=== PATIENT | female | born 1945 | race Caucasian/White ===

== ENCOUNTER 2024-12-23 13:27 | Inpatient (IN) | payer OTHER, MEDICAID, SELFPAY ==
[2024-12-23] VITALS (10 sets, daily range): BP systolic 141–159; BP diastolic 67–127; PULSE 70–94; RESP 19–32; TEMP 36.8; O2SAT 93–98; BMI 40.9
--- NOTE | 2024-12-23 13:39 | XR_ITS ---
WS: [id number] XR chest 1V portable [id number] REASON FOR EXAM: SOB FINDINGS: No prior examination for comparison. Calcification of the aortic arch with mild tortuosity of the thoracic aorta. Heart cardiomegaly. Mild central pulmonary venous congestion. Bilateral calcified granulomatous disease. There is a slightly hyperdense mass (2.2 cm) in the right lower medial lung field which may represent a partially calcified granuloma. Old pleural pericardial reaction on the left. No findings of pulmonary edema. Linear opacities in both lower lungs atelectasis versus fibrotic scarring. XR/XR chest 1V portable [id number] IMPRESSION: Moderate cardiomegaly and central pulmonary venous congestion. Right lower lung mass as above. No definite acute abnormality.
--- NOTE | 2024-12-23 13:40 | ECG_ITS ---
[employer] 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
[2024-12-23 13:57] LABS: Basophils # 0.1 10^3/uL (0.0-0.1); Basophils % 0.8 %; Eosinophils # 0.1 10^3/uL (0.0-0.8); Eosinophils % 0.7 %; Hematocrit 32.4 % (36-47); Lymphocytes # 1.6 10^3/uL (0.8-4.8); Lymphocytes % 21.8 %; Mean Corpuscular HGB Conc 29.6 g/dL (30-55); Mean Corpuscular Hemoglobin 27.5 pg (27-33); Mean Corpuscular Volume 92.8 fl (85-98); Mean Platelet Volume 9.1 fL (7.4-10.4); Monocytes # 0.6 10^3/uL (0.2-0.9); Monocytes % 8.3 %; Neutrophils # 4.84 10^3/uL (1.8-7.7); Neutrophils % 68.1 %; Nucleated Red Blood Cells % 0 %; Platelet Count 296 10^3/cmm (157-399); Red Blood Count 3.49 10^6/uL (3.85-5.65); Red Cell Distribution Width 15.1 % (12.1-15.1); White Blood Count 7.11 10^3/uL (3.29-11.43)
[2024-12-23 14:15] LABS: Bilirubin Urine Negative (Negative); Blood Urine Negative (Negative); Glucose Urine UA Negative (Normal); Ketones Urine Negative (Negative); Leukocyte Esterase Urine Negative (Negative); Nitrate Urine Negative (Negative); Protein Urine Negative (Negative); Specific Gravity, Urine 1.007 (1.005-1.030); Urine Appearance Clear (CLEAR); Urine Color Yellow (Yellow); Urobilinogen Urine 0.2 mg/dL (Negative)
[2024-12-23 14:20] LABS: Add Urine Microscopic? YES; Bacteria Urine None Seen /hpf; Hyaline Casts Urine 0-4 /lpf; RBC Urine 0-2 /hpf (0-2); Squamous Epithelial Cell Urine 0-5 /hpf (0-5); WBC Urine 0-5 /hpf (0-5)
[2024-12-23 14:24] LABS: Troponin(5th) Baseline 33 ng/L (0-10)
[2024-12-23 14:29] LABS: Alanine Aminotransferase 11 U/L (0-33); Albumin Level 3.9 g/dL (3.5-5.2); Alkaline Phosphatase 80 U/L (35-105); Aspartate Amino Transferase 13 U/L (0-32); Blood Urea Nitrogen 16 mg/dL (8-23); Calcium 9.7 mg/dL (8.5-10.5); Carbon Dioxide 35 mmol/L (22-29); Chloride 97 mmol/L (98-107); Creatinine Clr Calc Pharmacy 57.4999; Globulin 2.5 g/dL (1.3-4.6); Glucose 102 mg/dL (65-115); NT Pro B Type Natriuretic Pept 192 pg/mL (0-450); Osmolality Calculated 295 mOsm/kg (285-295); Sodium 142 mmol/L (136-145); Total Bilirubin 0.2 mg/dL (0.15-1.2); Total Protein 6.4 g/dL (6.6-8.7)
[2024-12-23 14:33] LABS: Anion Gap 14.7 (5-19); Potassium 4.7 mmol/L (3.5-5.1)
--- NOTE | 2024-12-23 15:55 | ECG_ITS ---
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
[2024-12-23 16:09] LABS: Troponin 5 2HR 30.76 ng/L (0-10)
[2024-12-23] MEDS: acetaminophen 500 mg Tablet 1000 MG PO ×2 (16:10→21:34)
[2024-12-23 16:13] LABS: Troponin 5 2HR Delta -2.24 ABS# (0-10)
[2024-12-23] MEDS: FUROsemide 10 mg/mL SDV 10mL 80 MG IVP (16:17)
--- NOTE | 2024-12-23 16:53 | ED_ITS ---
HPI - SOB/Dyspnea 2 General: Chief Complaint: Shortness of Breath/Dyspnea Stated Complaint: sob - thigh edema Time Seen by Provider: 12/23/24 13:30 History of Present Illness: HPI Narrative: This patient is a 79-year-old white female who presents to the ER with shortness of breath. Patient states she has a history of COPD and CHF. She states she has been more short of breath than usual over the past 3 to 4 days. She is requiring 6 L of oxygen and she is normally on 3 L. She was brought in by EMS. They did administer a DuoNeb treatment without much relief. Patient denies having any chest pain. Related Data Allergies Allergy/AdvReac Type Severity Reaction Status Date / Time propoxyphene (From Darvon) Allergy Unknown Verified 12/23/24 13:56 Review of Systems 2 General: Reports: 10 or more systems reviewed and unremarkable except in HPI and below Resp: Reports: dyspnea Physical Exam 2 Const: COMMON NORMALS: no acute distress, patient oriented x3 and no limitations GENERAL APPEARANCE: cooperative and comfortable HENMT: COMMON NORMALS: normocephalic, atraumatic, Normal nasal mucous membranes and turbinates present, moist oral mucous membranes and oropharynx normal HEAD & SCALP: normal to inspection, normocephalic and atraumatic F SLADE & SINUS: normal facial exam NOSE: Normal nasal mucous membranes and turbinates present Eye: COMMON NORMALS: Equal, round and reactive pupils present, EOMs intact bilaterally and conjunctivae normal GENERAL EYE: appearance normal, both eyes and all related structures CONJUNCTIVA: Yes conjunctivae normal PUPIL: Yes Equal, round and reactive pupils present Neck/C-Spine: COMMON NORMALS: supple and no JVD Chest: COMMONS NORMALS: normal inspection of the chest Resp: COMMON NORMALS: normal respiratory effort EFFORT & INSPECTION: Yes able to speak in complete sentences AUSCULTATION: rales Cardio: COMMON NORMALS: no JVD, regular rate, regular rhythm, No gallops present (Cardio), No murmurs present (Cardio) and No rub (Cardio) RATE: r egular rate RHYTHM: regular rhythm GI: COMMON NORMALS: Normal to inspection, nondistended, normoactive bowel sounds present, Soft to palpation and non-tender AUSCULTATION: Yes normoactive bowel sounds PALPATION: Yes Soft to palpation : COMMON NORMALS: Yes no CVA tenderness BLADDER/KIDNEY EXAM: Yes no CVA tenderness Back/Pelvis: COMMON NORMALS: no CVA tenderness and thoracic and lumbar spine normal to inspection Extremity: NARRATIVE EXTREMITY EXAM: 3+ pitting edema bilateral lower extremi ties. Neuro: COMMON NORMALS: patient oriented x3 and CN's II-XII intact bilaterally Psych: COMMON NORMALS: mental status grossly normal, Normal thought process present and cooperative THOUGHT PROCESS: Normal thought process present Skin: COMMON NORMALS: no rashes or lesions noted, turgor normal and no jaundice GENERAL SKIN EXAM: no rashes or lesions noted and turgor normal Course 2 Vital Signs: Vital signs: Vital Signs Temperature 98.2 F 12/23/24 13:29 Pulse Rate 88 12/23/24 16:00 Respiratory Rate 25 H 12/23/24 16:00 Blood Pressure 149/72 12/23/24 16:00 Pulse Oximetry 95 12/23/24 15:00 Oxygen Delivery Me thod Nasal Cannula 12/23/24 15:00 Oxygen Flow Rate 5 12/23/24 15:00 MDM - SOB/Dyspnea Medical Decision Making EKG did not reveal any acute abnormalities. Chest x-ray reveals cardiomegaly and increased pulmonary vascular congestion. CBC revealed a hemoglobin of 9.6. CMP normal. Baseline troponin was 33 with a 2-hour level of 31. BNP was 192. Urinalysis normal. Patient was given 80 mg of Lasix IV. She will need to be admitted for acute exacerbation of congestive heart failure. I discussed the case with Dr. Jonas. She did accept the patient. Patient will be transferred to the [facility] as soon as the bed is available. She is stable. Lab Data 12/23/24 13:50 12/23/24 13:50 Labs/Radiology: Radiology Impressions Chest X-Ray 12/23/24 13:39 IMPRESSION: Moderate cardiomegaly and central pulmonary venous congestion. Right lower lung mass as above. No definite acute abnormality. Laboratory Results WBC 7.11 10^3/uL (3.29-11.43) 12/23/24 13:50 RBC 3.49 10^6/uL (3.85-5.65) L 12/23/24 13:50 Hgb 9.60 g/dL (11.27-16.99) L 12/23/24 13:50 Hct 32.4 % (36-47) L 12/23/24 13:50 MCV 92.8 fl (85-98) 12/23/24 13:50 MCH 27.5 pg (27-33) 12/23/24 13:50 MCHC 29.6 g/dL (30-55) L 12/23/24 13:50 RDW 15.1 % (12.1-15.1) 12/23/24 13:50 Plt Count 296 10^3/cmm (157-399) 12/23/24 13:50 MPV 9.1 fL (7.4-10.4) 12/23/24 13:50 Neut % (Auto) 68.1 % 12/23/24 13:50 Lymph % (Auto) 21.8 % 12/23/24 13:50 [place] % (Auto) 8.3 % 12/23/24 13:50 Eos % (Auto) 0.7 % 12/23/24 13:50 Baso % (Auto) 0.8 % 12/23/24 13:50 Neut # (Auto) 4.84 10^3/uL (1.8-7.7) 12/23/24 13:50 Lymph # (Auto) 1.6 10^3/uL (0.8-4.8) 12/23/24 13:50 [place] # (Auto) 0.6 10^3/uL (0.2-0.9) 12/23/24 13:50 Eos # (Auto) 0.1 10^3/uL (0.0-0.8) 12/23/24 13:50 Baso # (Auto) 0.1 10^3/uL (0.0-0.1) 12/23/24 13:50 Nucleated RBC % (auto) 0 % 12/23/24 13:50 Nucleated RBCs # 0.0 /100WBC 12/23/24 13:50 Sodium 142 mmol/L (136-145) 12/23/24 13:50 Potassium 4.7 mmol/L (3.5-5.1) 12/23/24 13:50 Chloride 97 mmol/L (98-107) L 12/23/24 13:50 Carbon Dioxide 35 mmol/L (22-29) H 12/23/24 13:50 Anion Gap 14.7 (5-19) 12/23/24 13:50 BUN 16 mg/dL (8-23) 12/23/24 13:50 Creatinine 0.9 mg/dL (0.5-0.9) 12/23/24 13:50 GFR Calculation Not Reportable 12/23/24 13:50 Glucose 102 mg/dL (65-115) 12/23/24 13:50 Calculated Osmolality 295 mOsm/kg (285-295) 12/23/24 13:50 Calcium 9.7 mg/dL (8.5-10.5) 12/23/24 13:50 Total Bilirubin 0.2 mg/dL (0.15-1.2) 12/23/24 13:50 AST 13 U/L (0-32) 12/23/24 13:50 ALT 11 U/L (0-33) 12/23/24 13:50 Alkaline Phosphatase 80 U/L (35-105) 12/23/24 13:50 Troponin T Baseline 33 ng/L (0-10) H 12/23/24 13:50 Troponin T 120 Minute 30.76 ng/L (0-10) H 12/23/24 15:42 Delta Troponin T -2.24 ABS# (0-10) L 12/23/24 15:42 NT-Pro-B Natriuret Pep 192 pg/mL (0-450) 12/23/24 13:50 Total Protein 6.4 g/dL (6.6-8.7) L 12/23/24 13:50 Albumin 3.9 g/dL (3.5-5.2) 12/23/24 13:50 Globulin 2.5 g/dL (1.3-4.6) 12/23/24 13:50 Urine Color Yellow (Yellow) 12/23/24 13:59 Urine Appearance Clear (CLEAR) 12/23/24 13:59 Urine pH 7.0 (5-7) 12/23/24 13:59 Ur Specific [place] 1.007 (1.005-1.030) 12/23/24 13:59 Urine Protein Negative (Negative) 12/23/24 13:59 Urine Glucose (UA) Negative (Normal) 12/23/24 13:59 Urine Ketones Negative (Negative) 12/23/24 13:59 Urine Blood Negative (Negative) 12/23/24 13:59 Urine Nitrate Negative (Negative) 12/23/24 13:59 Urine Bilirubin Negative (Negative) 12/23/24 13:59 Urine Urobilinogen 0.2 mg/dL (Negative) 12/23/24 13:59 Ur Leukocyte Esterase Negative (Negative) 12/23/24 13:59 Urine RBC 0-2 /hpf (0-2) 12/23/24 13:59 Urine WBC 0-5 /hpf (0-5) 12/23/24 13:59 Ur Squamous Epith Cells 0-5 /hpf (0-5) 12/23/24 13:59 Amorphous Sediment Not Reportable 12/23/24 13:59 Urine Bacteria None seen /hpf (NONE) 12/23/24 13:59 Hyaline Casts 0-4 /lpf H 12/23/24 13:59 All radiology interpretation(s) finalized by discharge Discharge Plan Discharge Patient Disposition: Admitted As Inpatient Clinical Impression: Congestive heart failure Qualifiers: Heart failure type: unspecified Heart failure chronicity: acute on chronic Q ualified Code(s): I50.9 - Heart failure, unspecified Condition: Stable Coding Level of Care Code ED Biomedical Equipment Specialist for Giselle Lewis
--- NOTE | 2024-12-23 17:26 | P.HP_ITS ---
Providers/Chief Complaint 2 Primary Care Provider: Damien Brewer DO Chief Complaint: sob - thigh edema History of Present Illness Leeanne Chau is a 79 year old female Medications/Allergies Allergies Allergy/AdvReac Type Severity Reaction Status Date / Time propoxyphene (From Darvon) Allergy Unknown Verified 12/23/24 13:56 Vitals/I&O/Wt Last Vital Signs Temp 98.2 F 12/23/24 13:29 Pulse 70 12/23/24 17:16 Resp 24 H 12/23/24 17:16 BP 146/90 12/23/24 17:16 Pulse Ox 96 12/23/24 17:16 O2 Del Method Nasal Cannula 12/23/24 17:16 O2 Flow Rate 5 12/23/24 17:16 12/23/24 12/23/24 12/23/24 06:59 14:59 22:59 Output Total 1200 / 1200 Balance -1200 / -1200 Weight last 48 hrs Weight 101.605 kg Physical Exam 2 Urinary Catheter Management: Morgan: Cath Placed During This Visit: yes Urinary Catheter Date of Insertion: 12/23/24 Urinary Catheter Time of Insertion: 13:30 Data 12/23/24 13:50 12/23/24 13:50 A&P PDMP PDMP Reviewed: Not Reviewed Coding Level of Care Code Acute Code for Chg Fwd
--- NOTE | 2024-12-23 17:28 | USCV_ITS ---
Leeanne Chau Age: 79 Gender: F : 1945 Exam Date: 12/23/2024 18:26 Ordering Phys: Talisha Jonas MD Technologist: TRACY [place] [facility] [place]ication: heart failure, SOB, COPD, CHF, O2-dependent 3L BP: 146 / 90 HR: 73 Rhythm: Sinus Technical Quality: Adequate MEASUREMENTS (Male / Female) Normal Values 2D ECHO LV Diastolic Diameter PLAX 4.2 cm 4.2 - 5.9 / 3.9 - 5.3 cm IVS Diastolic Thickness 1.7 cm 0.6 - 1.0 / 0.6 - 0.9 cm IVS Systolic Thickness 2.0 cm LVPW Diastolic Thickness 1.6 cm 0.6 - 1.0 / 0.6 - 0.9 cm LVPW Systolic Thickness 2.0 cm LVOT Diameter 1.8 cm LV Ejection Fraction 2D Teich 66.1 % LV Ejection Fraction MOD 4C 65.3 % LV Ejection Fraction MOD 2C 56.6 % LV Ejection Fraction 2C AL 57.1 % LA Diameter 4.5 cm Aorta at Sinotubular Diameter 3.0 cm IVC Diameter 1.9 cm M-MODE LA Ao Ratio MM 1.3 AV Cusp Separation MM 1.0 cm DOPPLER AV Peak Velocity 352.0 cm/s LVOT Peak Velocity 115.0 cm/s AV Area Cont Eq vti 1.1 cm squared AV Area Cont Eq pk 0.9 cm squared MV Peak Velocity 144.0 cm/s MV Area PHT 2.3 cm squared Mitral E to A Ratio 0.7 TR Peak Velocity 306.0 cm/s TR Peak Gradient 37.5 mmHg TV Peak E Velocity 34.0 cm/s PV Peak Velocity 171.0 cm/s FINDINGS Left Ventricle Normal left ventricular size, systolic function and wall thickness, with no regional wall motion abnormalities. Left ventricular ejection fraction is estimated at 60 %. Grade I/IV diastolic dysfunction (abnormal relaxation filling pattern), normal to mildly elevated filling pressures. Right Ventricle The right ventricle is normal in size and function. Right Atrium The right atrium is normal in size. Left Atrium The left atrium is normal in size. Mitral Valve Moderately thickened mitral valve. Moderate mitral annular calcification. No mitral valve stenosis. Trace mitral valve regurgitation. Aortic Valve Severe aortic valve calcification. Moderate aortic valve stenosis, mean gradient 17.7 mmHg, JERROD 1.1 trace aortic valve regurgitation. cm squared. Tricuspid Valve Structurally normal tricuspid valve without significant stenosis or regurgitation. Pulmonary artery systolic pressure is normal. Pulmonic Valve Structurally normal pulmonic valve without significant stenosis. There is no pulmonic regurgitation. Pericardium Normal pericardium without effusion. Aorta Normal ascending aorta dimension. IVC The inferior vena cava appears normal. CONCLUSIONS Normal left ventricular size, systolic function and wall thickness, with no regional wall motion abnormalities. Left ventricular ejection fraction is estimated at 60 %. Grade I/IV diastolic dysfunction (abnormal relaxation filling pattern), normal to mildly elevated filling pressures. There is no pericardial effusion. No significant valve abnormalities. Right atrial pressure is around 5 mm of mercury. Lamont Rodríguez MD (Electronically Signed) Final Date: 23 December 2024 20:20 S
--- NOTE | 2024-12-23 17:31 | CTR_ITS ---
PROCEDURE INFORMATION: Exam: CT Chest Without Contrast; Diagnostic Exam date and time: 12/23/2024 7:46 PM Age: 79 years old Clinical indication: Shortness of breath and wheezing; SOB with hypoxia and wheezing. RT lung mass noted on cxr. History of chf. ; Additional info: Right lung mass TECHNIQUE: Imaging protocol: Diagnostic computed tomography of the chest without contrast. Radiation optimization: All CT scans at this facility use at least one of these dose optimization techniques: automated exposure control; mA and/or kV adjustment per patient size (includes targeted exams where dose is matched to clinical indication); or iterative reconstruction. COMPARISON: CR XR chest 1V portable [id number] 11/23/2024 14:17 RADIATION DOSE METRICS: Total DLP (mGy-cm): 558.39 FINDINGS: Lungs: Mild right posterolateral lower lung atelectatic changes. Slight peribronchial cuffing is seen as well. No masses. Pleural spaces: Unremarkable. No pneumothorax. No pleural effusion. Heart: Prominent cardiomegaly mild pericardial effusion. Calcifications are seen about the aortic valve. Lymph nodes: Unremarkable. No enlarged lymph nodes. Vasculature: Ascending thoracic aortic arch demonstrates dimension of 3.9 cm and is felt to be ectatic. Moderately prominent atherosclerotic calcifications involve the transverse aortic arch.. Bones/joints: Minimal convexity of the thoracic spine is directed to the right. Sagittal images demonstrate mild generalized kyphosis centered in the midthoracic region. [id number] osteoarthritic spurring is seen along the anterior and right lateral aspects of the lower thoracic vertebrae.. No acute fracture. Soft tissues: Solitary surgical clip seen in the right thyroid region. CT/CT chest con [id number] IMPRESSION: 1. Prominent cardiomegaly with mild pericardial effusion. 2. Peribronchial cuffing suspect mild pulmonary edema. 3. Calcifications of the aortic valve. 4. Minimal right posterolateral lower lung atelectatic changes. 5. 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
[2024-12-23 18:18] LABS: Procalcitonin 0.06 ng/mL (0-0.5); Thyroid Stimulating Hormone 5.71 uIU/mL (0.27-4.20)
[2024-12-23 18:29] LABS: Chol HDL Ratio 3.79 mg/dL (0.0-4.40); Cholesterol 216 mg/dL (0-200); HDL Cholesterol 57 mg/dL (60-100); LDL Cholesterol Calculated 115 mg/dL (50-129); Triglycerides 219 mg/dL (0-150); VLDL Cholestrol Calculation 44 mg/dL (0-30)
[2024-12-23] MEDS: FUROsemide 10 mg/mL SDV 4mL 40 MG IVP (18:42)
[2024-12-23] MEDS: heparin 5,000 unit/mL INJ 1 mL 5000 UNIT SUBCUT (18:42)
--- NOTE | 2024-12-23 19:40 | ECG_ITS ---
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
[2024-12-23 19:57] LABS: Estmated Average Glucose 131; Hemoglobin A1C 6.2 % (4.0-6.0)
--- NOTE | 2024-12-23 20:26 | PC.NURSE ---
This nurse attempted to review patient's home med list, but patient is unsure of what/how much medication patient takes as patient is somewhat a poor historian. Home health nurse Melissa was called and asked if she knew the patient's home meds and/or dosages. Melissa did not know patient's home meds, but instructed this nurse to call [facility] at [phone] as that is where patient gets all of her medications filled.
[2024-12-23 20:30] LABS: Troponin 5 6HR 32.01 ng/L (0-10); Troponin 5 6HR Delta -0.99 ng/L (0-12)
--- NOTE | 2024-12-23 21:09 | PC.NURSE ---
Attempted to contact hospitalist on behalf of patient requesting pain med, breathing treatment, and breathing treatment.
--- NOTE | 2024-12-23 21:24 | PC.NURSE ---
Dr Chapa gave this nurse verbal order for: -Duoneb Q4 hours -0.5mg Xanax PO ONCE NOW -Tylenol 1000mg PO ONCE NOW
[2024-12-23] MEDS: ALPRAZolam 0.5 mg Tablet PO (21:34)
[2024-12-23] MEDS: ipratropium-albuterol 3 mL Neb INHALATION (21:35)
[2024-12-24] VITALS (12 sets, daily range): BP systolic 110–163; BP diastolic 63–104; PULSE 63–107; RESP 15–30; TEMP 36.3–37.1; O2SAT 90–99
[2024-12-24 03:04] LABS: Basophils # 0.1 10^3/uL (0.0-0.1); Basophils % 0.8 %; Eosinophils # 0.1 10^3/uL (0.0-0.8); Eosinophils % 0.8 %; Hematocrit 31.1 % (36-47); Lymphocytes # 1.6 10^3/uL (0.8-4.8); Mean Corpuscular HGB Conc 29.9 g/dL (30-55); Mean Corpuscular Hemoglobin 27.4 pg (27-33); Mean Corpuscular Volume 91.5 fl (85-98); Mean Platelet Volume 8.5 fL (7.4-10.4); Monocytes # 0.5 10^3/uL (0.2-0.9); Monocytes % 8.5 %; Neutrophils # 3.73 10^3/uL (1.8-7.7); Neutrophils % 62.6 %; Nucleated Red Blood Cells % 0 %; Platelet Count 280 10^3/cmm (157-399); Red Cell Distribution Width 15.1 % (12.1-15.1); White Blood Count 5.97 10^3/uL (3.29-11.43)
[2024-12-24 03:34] LABS: Alanine Aminotransferase 8 U/L (0-33); Albumin Level 3.6 g/dL (3.5-5.2); Alkaline Phosphatase 76 U/L (35-105); Anion Gap 12.6 (5-19); Aspartate Amino Transferase 10 U/L (0-32); Blood Urea Nitrogen 18 mg/dL (8-23); Calcium 9.6 mg/dL (8.5-10.5); Carbon Dioxide 38 mmol/L (22-29); Chloride 96 mmol/L (98-107); Creatinine Clr Calc Pharmacy 51.7499; Glucose 170 mg/dL (65-115); Magnesium 1.9 mg/dL (1.7-2.3); NT Pro B Type Natriuretic Pept 211 pg/mL (0-450); Osmolality Calculated 302 mOsm/kg (285-295); Potassium 3.6 mmol/L (3.5-5.1); Sodium 143 mmol/L (136-145); Total Bilirubin 0.2 mg/dL (0.15-1.2); Total Protein 6.6 g/dL (6.6-8.7)
[2024-12-24] MEDS: HYDROcodone-acetaminophen 10-325 mg Tablet 1 TAB PO ×3 (03:34→20:33)
[2024-12-24] MEDS: MELATONIN 3 MG TABLET PO (03:45)
--- NOTE | 2024-12-24 05:22 | CTR_ITS ---
PROCEDURE INFORMATION: Exam: CTA Chest With Contrast Exam date and time: 12/24/2024 6:55 AM Age: 79 years old Clinical indication: Shortness of breath; Additional info: Chf TECHNIQUE: Imaging protocol: Computed tomographic angiography of the chest with contrast. Exam focused on the arteries. 3D rendering (Not supervised by radiologist): MIP and/or 3D reconstructed images were created by the technologist. Radiation optimization: All CT scans at this facility use at least one of these dose optimization techniques: automated exposure control; mA and/or kV adjustment per patient size (includes targeted exams where dose is matched to clinical indication); or iterative reconstruction. Contrast material: OMNI 350; Contrast volume: 69 ml; Contrast route: INTRAVENOUS (IV); COMPARISON: CT chest wo [facility] [id number] 12/23/2024 7:46 PM RADIATION DOSE METRICS: Total DLP (mGy-cm): 589.08 FINDINGS: Pulmonary arteries: Normal. No pulmonary emboli. Aorta: Unremarkable. No aortic aneurysm. No aortic dissection. Other arteries: Heavy atherosclerotic disease. Lungs: Basilar scarring/atelectasis. COPD changes of the apices of the lungs. Pleural spaces: Unremarkable. No pneumothorax. No pleural effusion. Heart: Small to moderate-sized pericardial effusion. Coronary arteries: At least moderate calcified coronary atherosclerotic disease. Lymph nodes: Unremarkable. No enlarged lymph nodes. Gallbladder and biliary ducts: Cholelithiasis. Few calcifications are noted in the lateral wall of the gallbladder. Bones/joints: Diffuse degenerative change of the visualized osseous structures. Soft tissues: Unremarkable. CT/CT angio chest PE protcl [id number] IMPRESSION: 1. No pulmonary embolus. 2. Small pericardial effusion, unchanged from recent prior comparison. Nonspecific and could represent infectious/inflammatory foci versus third-spacing of fluid. Correlate clinically.
--- NOTE | 2024-12-24 05:31 | P.HP_ITS ---
Providers/Chief Complaint 2 Admitting Physician: DR CHAPA--- patient seen in before 12 midnight Primary Care Provider: Damien Brewer DO Chief Complaint: sob - thigh edema History of Present Illness Leeanne Chau is a 79 year old female with medical history significant for COPD and CHF exacerbation. Patient had been seen and evaluated and had presented to the emergency room because of extreme shortness of breath limiting activity. X- ray done here was remarkable for cephalization pulmonary vascular congestion. The patient was given 80 mEq of potassium in the emergency room. Patient put out quite a bit of urine for more than 500 mL. 40 mEq IV Q12 ordered for further optimization of care cardiology has been consulted to be on this case. Patient claimed that she had been at [facility] and the [facility] in [place] 5 different times within a month because of the same issues of COPD and CHF exacerbation. And he will like to be coming to this hospital to receive his heart care. Monitor closely renal function while diuresing. Will continue to optimize hypoxemia with supplemental oxygen. Patient had been noted to have a right lower lobe mass of 2.2 cm CTA had been ordered and pending to further evaluate for pulmonary embolism and more look to this mass. Review of Systems 2 Narrative: Generally system review upon 10 organ reviewed with significant for pulmonary system with shortness of breath and volume overload. Medications/Allergies Home Medications ?Medication ?Instructions ?Recorded ?Confirmed ?Last Taken ?Type albuterol sulfate 2.5 mg/3 mL mg continuous nebulizati on 12/23/24 12/23/24 History (0.083 %) solution for nebulization albuterol sulfate 90 mcg/actuation inhalation 12/23/24 12/23/24 History aerosol inhaler bumetanide 1 mg tablet mg 12/23/24 12/23/24 Histor y hydralazine 25 mg tablet mg 12/23/24 12/23/24 Histor y potassium chloride 10 mEq meq PO 12/23/24 12/23/24 Hi story tablet,extended release Allergies Allergy/AdvReac Type Severity Reaction Status Date / Time propoxyphene (From Darvon) Allergy Unknown Verified 12/23/24 13:56 Vitals/I&O/Wt Last Vital Signs Temp 98.2 F 12/23/24 13:29 Pulse 81 12/24/24 04:54 Resp 22 H 12/24/24 04:54 BP 141/104 12/24/24 04:54 Pulse Ox 95 12/24/24 04:54 O2 Del Method Nasal Cannula 12/24/24 04:54 O2 Flow Rate 5 12/23/24 21:36 12/23/24 12/23/24 12/24/24 14:59 22:59 06:59 Output Total 1999 Balance -1999 Weight last 48 hrs Weight 101.605 kg Physical Exam 2 Narrative: Generally patient is pretty much alert awake oriented and very capable of making her own choice and very firm about it. HEENT normocephalic/atraumatic neck neck is supple cardiovascular heart rate is regular lungs are pretty with coarse breath sounds. The abdomen soft nontender nondistended unremarkable extremities intact but has edema with third spacing. Neurology has no focality. Urinary Catheter Management: Morgan: Cath Placed During This Visit: yes Reason for Continuing Indwelling Catheter: Accurate Measurement of Urinary Output in Critically Ill Patients Urinary Catheter Date of Insertion: 12/23/24 Urinary Catheter Time of Insertion: 13:30 Data 12/24/24 02:59 12/24/24 02:59 A&P Assessment and plan (1) Congestive heart failure: Patient is an overt heart failure - Continue diuresis with Lasix - Echocardiogram be obtained to evaluate wall motion abnormality and EF - Cardiology on consult with Dr. Rodríguez - Flat increase in troponin trending down from 33-30.76 - Continue to optimize cephalization in the lung. (2) Hypoxemia: Hypoxemia could be multifactorial to this person has pulmonary embolism in the setting of a 2.5 cm of mass in the right lower lobe. Follow-up CT a that was ordered of the chest should that be the case patient was being anticoagulated with heparin or Eliquis if patient is able to have insurance can cover. (3) Right lower lobe lung mass: Right lower lobe mass of 2.5 cm is very worrisome for cancer Patient could be hypercoagulable and might have pulmonary embolism causing the hypoxemia with a combination of CHF with underlining COPD. Must continue to follow through with the CTA of the chest that was ordered and pending. (4) Pulmonary hypertension: Cardiology on case to follow through with this should patient be on beta-mauri again patient has a history of smoking. Was get echocardiogram to further evaluate for pulmonary hypertension Plan GI and DVT prophylaxis in place PDMP PDMP Reviewed: Last Reviewed 12/24/24 05:56 by Cathy Chapa MD Attestations 2 Medical Necessity Statement*: Patient is with overt heart failure with much peripheral edema and a right lower lobe mass that code Main the patient is at risk for pulmonary embolism as well patient meets inpatient criteria for at least 2 midnights stay Coding Level of Care Code 42279 Diagnoses Congestive heart failure I50.9 Heart failure chronicity: acute on chronic Heart failure type: unspecified Hypoxemia R09.02 Right lower lobe lung mass R91.8 Pulmonary hypertension I27.20 Time Spent (min) 60
[2024-12-24] MEDS: heparin 5,000 unit/mL INJ 1 mL 5000 UNIT SUBCUT ×2 (06:00→17:44)
[2024-12-24] MEDS: FUROsemide 10 mg/mL SDV 4mL 40 MG IVP ×2 (06:00→17:44)
--- NOTE | 2024-12-24 07:00 | XR_ITS ---
WS: [id number] XR chest 1V portable [id number] REASON FOR EXAM: f/u heart failure FINDINGS: Previously noted right lower lung mass is no longer identifiable and presumably represented overlap of calcified granulomatous disease rather than atelectasis. There is moderate cardiomegaly and central pulmonary venous congestion unchanged compared to 12/23/2024. No definite evidence for pulmonary edema. XR/XR chest 1V portable [id number] IMPRESSION: Stable abnormal chest as above.
[2024-12-24] MEDS: iohexol 350 mg/mL 500 mL Btl (per mL) IV (07:26)
[2024-12-24] MEDS: acetaminophen 325 mg Tablet 650 MG PO (10:38)
[2024-12-24] MEDS: ipratropium-albuterol 3 mL Neb INHALATION ×2 (13:11→20:45)
[2024-12-24] MEDS: BuSPIRONE 10 mg Tablet PO ×2 (13:22→20:35)
--- NOTE | 2024-12-24 13:28 | PC.SOCIAL ---
IMM updated IMM dated and initialed, copy given to patient and placed in chart
[2024-12-24] MEDS: LORazepam 0.5 mg Tablet PO ×2 (13:37→20:35)
--- NOTE | 2024-12-24 13:55 | P.CONIM_ITS ---
<Statement entered by Lamont Rodríguez MD - 12/24/24 22:29> Patient was evaluated and cared for in conjunction with an advanced practice practitioner. I personally examined the patient and reviewed the chart and all pertinent data including imaging, telemetry, and laboratory results. I discussed the patient in detail with the advanced practice practitioner. Please see their note for complete H&P testing result and agreed upon plan of care for the patient. Providers/Reason For Consult 2 Consulting Physician/Specialty*: Lamont Rodríguez MD Reason for Consult*: Diastolic heart failure Requesting Physician: Dr. Chapa Attending Physician: Carlee López MD Primary Care Provider: Damien Brewer DO History of Present Illness History of Present Illness Leeanne Chau is a 79 year old female who came into the emergency room yesterday evening with severe shortness of breath. She has a history of COPD and diastolic heart failure. No other cardiac history was noted by patient. She states for the past 4 days she was noticing increased shortness of breath and that another provider noticed she had edema. She was brought in via EMS on 6 L of oxygen. She is normally on 3. proBNP was 192. Chest x-ray revealed cardiomegaly and increased pulmonary vascular congestion. Baseline Trope was 33 with a 2-hour of 31 and 6 hour trop was 32. She was given 80 mg of lasix with good response -1520. Denies any chest pain at this time. She is currently 97% on 4 l nasal cannula. Echo showed ejection fraction of 60% grade 1 out of 4 diastolic dysfunction no pericardial effusion no regional wall motion abnormalities. Pulmonary artery systolic pressure was normal. Chest CTA showed COPD changes of the lungs and pleural spaces were unremarkable. EKG showed sinus rhythm with occasional supraventricular premature complexes. No acute ST or T wave abnormality seen. Medications/Allergies Home Medications ?Medication ?Instructions ?Recorded ?Confirmed ?Last Taken ?Type albuterol sulfate 90 mcg/actuation 2 puff inhalation Q 6H PRN 12/23/24 12/24/24 12/23/24 History aerosol inhaler Shortness Of Breath Or Wheez ing bumetanide 1 mg tablet 1 mg PO DAILY 12/23/2412/24 Unknown History hydralazine 25 mg tablet 25 mg PO TID 12/23/2412/23/24 History buspirone 10 mg tablet 10 mg PO TID 12/24/24 Unknown History calcipotriene 0.005 % topical cream 1 applic topical B ID 12/24/24 12/24/24 Unknown History cholecalciferol (vitamin D3) 125 See Rx Instructions . Route .COMPLEX 12/24/24 12/24/24 Unknown History mcg (5,000 unit) capsule (D3-5000) furosemide 40 mg tablet 40 mg PO DAILY 12/24/2401/12 Unknown History hydralazine 25 mg tablet 25 mg PO TID 12/24/24 Unknown History hydrocodone 10 mg-acetaminophen 1 tab PO Q8H PRN pain 12/24/24 12/24/24 Unknown History 325 mg tablet hydroxyzine HCl 25 mg tablet 25 mg PO TID 12/24/2401/12 Unknown History ipratropium 0.5 mg-albuterol 3 mg 1 ml inhalation Q4-5 H PRN 12/24/24 12/24/24 Unknown History (2.5 mg base)/3 mL nebulization Shortness Of Breath soln levothyroxine 75 mcg tablet 75 mcg PO DAILY 12/24/24 0 12/24/24 Unknown History lorazepam 0.5 mg tablet (Ativan) 0.5 mg PO TID 5 12/24/24 Unknown History ondansetron 4 mg disintegrating 4 mg PO Q8H PRN nausea /vomiting 12/24/24 12/24/24 Unknown History tablet oxybutynin chloride 5 mg 5 mg PO DAILY 12/24/2412/24 Unknown History tablet,extended release 24 hr potassium chloride 10 mEq 10 meq PO DAILY 12/24/2401/12 Unknown History tablet,extended release tiotropium bromide 2.5 2 puff inhalation DAILY 01/1212/24/24 Unknown History mcg/actuation mist for inhalation (Spiriva Respimat) Allergies Allergy/AdvReac Type Severity Reaction Status Date / Time propoxyphene (From Darvon) Allergy Unknown Verified 12/23/24 13:56 Current Medications Generic Name Dose Route Start Last Admin Trade Name Freq PRN Reason Stop Dose Admin Acetaminophen 650 mg 12/24/24 10:12 12/24/24 10:38 Acetaminophen 325 Mg Tablet PO 650 mg Q6H PRN Administration MILD PAIN Hydrocodone Bitart/Acetaminophen 1 tab 12/24/24 12:11 12/24/24 12:50 Hydrocodone-Acetaminophen 10-325 Mg Tablet PO 1 tab Q8H PRN Administration PAIN Albuterol/Ipratropium 3 ml 12/23/24 17:28 12/24/24 13:11 Ipratropium-Albuterol 3 Ml Neb INHALATION 3 ml Q6H PRN Administration SHORTNESS OF BREATH Buspirone HCl 10 mg 12/24/24 15:00 12/24/24 13:22 Buspirone 10 Mg Tablet PO 10 mg TID DILAN Administration Furosemide 40 mg 12/23/24 17:30 12/24/24 06:00 Furosemide 10 Mg/Ml Sdv 4ml IVP 40 mg Q12H DILAN Administration Heparin Sodium (Porcine) 5,000 unit 12/23/24 17:30 12/24/24 06:00 Heparin 5,000 Unit/Ml Inj 1 Ml SUBCUT 5,000 unit Q12H DILAN Administration Lorazepam 0.5 mg 12/24/24 15:00 12/24/24 13:37 Lorazepam 0.5 Mg Tablet PO 0.5 mg TID DILAN Administration Vitals/I&O/Wt Last Vital Signs Temp 98.2 F 12/24/24 13:05 Pulse 107 H 12/24/24 13:05 Resp 26 H 12/24/24 13:05 BP 151/77 12/24/24 13:05 Pulse Ox 97 12/24/24 13:05 O2 Del Method Nasal Cannula 12/24/24 13:05 O2 Flow Rate 4 12/24/24 13:05 12/23/24 12/24/24 12/24/24 22:59 06:59 14:59 Intake Total 480 / 480 Output Total 1999 Balance -1999 / 480 / 480 Weight last 48 hrs Weight 235 lb 6.4 oz Weight 224 lb Physical Exam 2 Narrative: General: No apparent distress, healthy appearing, well nourished HENMT: normoceophalic Neck: No carotid bruit bilaterally Muskuloskeletal: Full ROM Respiratory: Normal respiratory effort, clear to auscultation bilaterally throughout all lung moseley, no use of accessory muscles Cardio: No JVD, regular rate, regular rhythm, S1 S2 normal, no murmurs, peripheral pulses 2+ radial palpated bilaterally GI: Normal to inspection, nondistended Extremities: Full ROM, normal, normal capillary refill, no cyanosis, 2+ edema bilateral lower extremities Neuro: Alert and oriented x4, no focal motor deficits Psych: Affect normal, denies suicidal ideation, mental status grossly normal Skin: No rashes or lesions noted, no wounds Urinary Catheter Management: Morgan: Cath Placed During This Visit: yes Reason for Continuing Indwelling Catheter: Other Urinary Catheter Date of Insertion: 12/23/24 Urinary Catheter Time of Insertion: 13:30 Data 12/24/24 02:59 12/24/24 02:59 A&P Assessment and plan (1) Congestive heart failure: (2) COPD (chronic obstructive pulmonary disease): Plan Patient states her shortness of breath has improved. She has responded well to the Lasix. Would agree to continue Lasix 40 every 12. She is -2 L over 24 hours. Recommend continue diuresis and titrate depending on patient's response, continue to monitor I&O as well as creatinine. Pro bnp was normal. May be having a COPD exacerabation as well. Treatment per primary. Thank you, Dr. Jonas, for allowing us to care for this very pleasant 79 year old female. PDMP PDMP Reviewed: Not Reviewed Coding Level of Care Code Acute Code for [facility] Fwd Diagnoses Congestive heart failure I50.9 Heart failure chronicity: acute on chronic Heart failure type: unspecified Chronic obstructive pulmonary disease, unspecified COPD type J44.9 COPD type: unspecified COPD
--- NOTE | 2024-12-24 15:20 | PM.PN ---
Subjective Subjective: Patient seen at the bedside and has some improvement in shortness of breath. She still has peripheral edema Vitals/I&O/Wt Last Vital Signs Temp 98.2 F 12/24/24 13:05 Pulse 107 H 12/24/24 13:05 Resp 26 H 12/24/24 13:05 BP 151/77 12/24/24 13:05 Pulse Ox 97 12/24/24 13:05 O2 Del Method Nasal Cannula 12/24/24 13:05 O2 Flow Rate 4 12/24/24 13:05 12/24/24 12/24/24 12/24/24 06:59 14:59 22:59 Intake Total 480 / 480 Output Total 1200 / 1200 Balance -720 / -720 Weight last 48 hrs Weight 106.776 kg Weight 101.605 kg Physical Exam Narrative: General -Awake, alert , no acute distess HEENT-normocephalic, atraumatic, neck is supple Lungs-clear to auscultation bilaterally, no wheezes or crackles CVS -S1-S2, regular rate and rhythm Abdomen -soft, nontender, normal bowel sounds Extremities-Bilateral pitting pedal edema, bright erythema in left leg, tenderness Neurology -no gross focal deficits Urinary Catheter Management: Morgan: Cath Placed During This Visit: yes Reason for Continuing Indwelling Catheter: Other Urinary Catheter Date of Insertion: 12/23/24 Urinary Catheter Time of Insertion: 13:30 Data 12/24/24 02:59 12/24/24 02:59 A&P Assessment and plan (1) Congestive heart failure: (2) Hypoxemia: (3) Right lower lobe lung mass: (4) Pulmonary hypertension: Plan #Acute decompensated heart failure with preserved EF, diastolic dysfunction -Echo showed normal EF with diastolic dysfunction - Patient continues to have peripheral edema - Will continue IV Lasix today 40 mg twice daily - Strict I's and O's - Continue supportive care #Elevated troponin -Patient reports some chest discomfort -cardiology consulted #Acute hypoxic respiratory insufficiency - In the setting of decompensated heart failure -She is requiring 4 L supplemental oxygen - Wean oxygen as tolerated #Small pericardial effusion -Echo pending #Suspected Right lung mass -Seen on Chest x-ray -Ct chest negative for lung mass, repeat chest xray also negative -Left LE Cellulitis -Start ceftriaxone , doxycycline -Monitor - PDMP PDMP Reviewed: Not Reviewed Attestations Medical Necessity Statement*: Patient to continue inpatient care today for decompensated HF requiring IV lasix. Coding Level of Care Code Acute Code for [facility] Fwd Diagnoses Congestive heart failure I50.9 Heart failure chronicity: acute on chronic Heart failure type: unspecified Hypoxemia R09.02 Right lower lobe lung mass R91.8 Pulmonary hypertension I27.20
[2024-12-24] MEDS: cefTRIAXone 1,000 mg SDV 1000 MG IVP (17:44)
[2024-12-24] MEDS: doxycycline 100 mg Tablet PO (17:45)
[2024-12-25] VITALS (16 sets, daily range): BP systolic 105–174; BP diastolic 60–100; PULSE 50–113; RESP 16–24; TEMP 36.4–37.1; O2SAT 90–97
[2024-12-25] MEDS: heparin 5,000 unit/mL INJ 1 mL 5000 UNIT SUBCUT ×2 (04:42→17:09)
[2024-12-25] MEDS: FUROsemide 10 mg/mL SDV 4mL 40 MG IVP ×2 (04:42→17:09)
[2024-12-25 05:53] LABS: Hematocrit 31.3 % (36-47); Mean Corpuscular Volume 90.2 fl (85-98); Mean Platelet Volume 9.2 fL (7.4-10.4); Platelet Count 317 10^3/cmm (157-399); Red Blood Count 3.47 10^6/uL (3.85-5.65); Red Cell Distribution Width 15.2 % (12.1-15.1)
[2024-12-25 06:03] LABS: Absolute Neutrophil 3.8 10^3/cmm (1.4-6.5); Absolute Segmented Neutrophil 3.8 10/cmm (1.6-7.1); Eosinophils 0 %; Lymphocytes 33 %; Monocytes Absolute 0.4 10^3/cmm (0.1-0.6); Platelet Estimate Normal (Normal); Segmented Neutrophils 61 %; Total Cells Counted 100 (0-100)
[2024-12-25 06:26] LABS: Albumin Level 3.6 g/dL (3.5-5.2); Anion Gap 11.6 (5-19); Blood Urea Nitrogen 20 mg/dL (8-23); Calcium 9.7 mg/dL (8.5-10.5); Carbon Dioxide 36 mmol/L (22-29); Chloride 97 mmol/L (98-107); Creatinine Clr Calc Pharmacy 59.1821; Glucose 114 mg/dL (65-115); Phosphorus 3.8 mg/dL (2.5-4.5); Potassium 3.6 mmol/L (3.5-5.1); Sodium 141 mmol/L (136-145)
[2024-12-25] MEDS: ipratropium-albuterol 3 mL Neb INHALATION ×3 (08:13→20:14)
[2024-12-25] MEDS: BuSPIRONE 10 mg Tablet PO ×3 (08:14→20:48)
[2024-12-25] MEDS: HYDROcodone-acetaminophen 10-325 mg Tablet 1 TAB PO ×3 (08:14→21:01)
[2024-12-25] MEDS: doxycycline 100 mg Tablet PO ×2 (08:14→17:19)
[2024-12-25] MEDS: LORazepam 0.5 mg Tablet PO ×3 (08:14→20:47)
--- NOTE | 2024-12-25 12:08 | P.PN_ITS ---
Subjective 2 Subjective: Patient seen at the bedside and she still has shortness of breath. Peripheral edema is improved Vitals/I&O/Wt Last Vital Signs Temp 98.2 F 12/25/24 12:00 Pulse 105 H 12/25/24 12:00 Resp 19 H 12/25/24 12:00 BP 152/83 12/25/24 12:00 Pulse Ox 95 12/25/24 12:00 O2 Del Method Nasal Cannula 12/25/24 12:00 O2 Flow Rate 3.5 12/25/24 12:00 12/24/24 12/25/24 12/25/24 22:59 06:59 14:59 Intake Total 240 / 720 720 / 1440 240 / 240 Output Total 1000 / 2200 750 / 2950 1000 / 1000 Balance -760 / -1480 -30 / -1510 -760 / -760 Weight last 48 hrs Weight 106.776 kg Weight 101.605 kg Physical Exam 2 Narrative: General -Awake, alert , no acute distess HEENT-normocephalic, atraumatic, neck is supple Lungs-diminished breath sounds bilaterally, mild bibasilar crackles, no wheezes CVS -S1-S2, regular rate and rhythm Abdomen -soft, nontender, normal bowel sounds Extremities-Bilateral pitting pedal edema -improved , bright erythema in left leg, tenderness-improved Neurology -no gross focal deficits Urinary Catheter Management: Morgan: Cath Placed During This Visit: yes Reason for Continuing Indwelling Catheter: Other Urinary Catheter Date of Insertion: 12/23/24 Urinary Catheter Time of Insertion: 13:30 Data 12/25/24 05:14 12/25/24 05:14 A&P Assessment and plan (1) Congestive heart failure: (2) Hypoxemia: (3) Right lower lobe lung mass: (4) Pulmonary hypertension: Plan #Acute decompensated heart failure with preserved EF, diastolic dysfunction -Echo showed normal EF with diastolic dysfunction - Peripheral edema improved today - Will continue IV Lasix today 40 mg twice daily. Possible switch to p.o. Lasix in the a.m. - Strict I's and O's - Continue supportive care #Elevated troponin -Patient reports some chest discomfort -cardiology consulted #Acute hypoxic respiratory insufficiency - In the setting of decompensated heart failure -She is requiring 4 L supplemental oxygen - Wean oxygen as tolerated # Acute COPD exacerbation - Seems patient also has a component of COPD exacerbation, lungs sounds diminished - Start Solu-Medrol, continue breathing treatments -Check ABG #Small pericardial effusion - No pericardial effusion on echo #Suspected Right lung mass -Seen on Chest x-ray -Ct chest negative for lung mass, repeat chest xray also negative for lung mass -Left LE Cellulitis - Continue ceftriaxone , doxycycline -Monitor - PDMP PDMP Reviewed: Not Reviewed Attestations 2 Medical Necessity Statement*: Patient to continue inpatient care today for decompensated HF requiring IV lasix. Coding Level of Care Code Acute Code for g Fwd Diagnoses Congestive heart failure I50.9 Heart failure chronicity: acute on chronic Heart failure type: unspecified Hypoxemia R09.02 Right lower lobe lung mass R91.8 Pulmonary hypertension I27.20
[2024-12-25] MEDS: methylPREDNISolone sod succ 40 mg/mL INJ IVP ×2 (12:13→20:47)
[2024-12-25 13:21] LABS: ABG PH Result 7.44 (7.35-7.45); Alveolar-Arterial Oxygen Gradi 0.4 mmHg (5-10); Arterial Blood Gas Hematocrit 30.8 % (37-47); Base Excess ABG 15.7 mmol/L (-2.0-2.0); Blood Gas Allen Test Pos; Blood Gas LPM 3.5 %; Blood Gas Operator Identificat GD; Blood Gas Sample Site Radial, right; Blood Gas Sample Type Arterial; Carboxyhemoglobin 1.4 %THgb (0.4-20.1); HCO3 ABG 42.3 mmol/L (22-26); HGB O2 Sat 92.3 % (95-100); Ionized Calcium Level - ABG 1.2 mmol/L (1.1-1.4); Oxygen Device NC; Oxygen Saturation ABG 94.5; PO2 ABG 69.1 mmHg (80.0-100.0); Potassium Level - ABG 3.6 mmol/L (3.5-5.0)
[2024-12-25 13:24] LABS: ABG PCO2 63.1 mmHg (35-45)
[2024-12-25] MEDS: cefTRIAXone 1,000 mg SDV 1000 MG IVP (17:09)
--- NOTE | 2024-12-25 20:11 | P.PN_ITS ---
Subjective 2 Subjective: Improving lower extremity edema, however she remains short of breath Vitals/I&O/Wt Last Vital Signs Temp 98.1 F 12/25/24 15:34 Pulse 96 12/25/24 15:34 Resp 18 12/25/24 15:34 BP 150/91 12/25/24 15:34 Pulse Ox 90 12/25/24 15:34 O2 Del Method Room Air 12/25/24 15:34 O2 Flow Rate 3.5 12/25/24 14:05 12/25/24 12/25/24 12/25/24 06:59 14:59 22:59 Intake Total 720 / 1440 360 / 360 Output Total 750 / 2950 1000 / 1000 800 / 1800 Balance -30 / -1510 -640 / -640 -800 / -1440 Weight last 48 hrs Weight 235 lb 6.4 oz Physical Exam 2 Narrative: GENERAL: Patient is alert, awake and oriented x3. HEART: Regular S1 and S2. No murmur, rub or gallop. LUNGS: Decreased breath sound with expiratory phase prolonged bilaterally. CENTRAL NERVOUS SYSTEM: Grossly nonfocal. EXTREMITIES: Lower extremities with out edema 2+ bilaterally with cellulitis and wrinkles. Urinary Catheter Management: Morgan: Cath Placed During This Visit: yes Reason for Continuing Indwelling Catheter: Assist Healing of Perineal & Sacral Wounds- Incontinent Patients Urinary Catheter Date of Insertion: 12/23/24 Urinary Catheter Time of Insertion: 13:30 Data 12/25/24 05:14 12/25/24 05:14 A&P Assessment and plan (1) Congestive heart failure: (2) COPD (chronic obstructive pulmonary disease): Plan Continue diuretics COPD exacerbation treatment as per medicine PDMP PDMP Reviewed: Not Reviewed Attestations 2 Medical Necessity Statement*: Patient require continuation hospitalization for above defined care Coding Level of Care Code Acute Code for [facility] Fwd Diagnoses Congestive heart failure I50.9 Heart failure chronicity: acute on chronic Heart failure type: unspecified Chronic obstructive pulmonary disease, unspecified COPD type J44.9 COPD type: unspecified COPD
[2024-12-26] VITALS (11 sets, daily range): BP systolic 98–188; BP diastolic 58–110; PULSE 100–126; RESP 17–25; TEMP 36.6–37; O2SAT 92–97
[2024-12-26] MEDS: methylPREDNISolone sod succ 40 mg/mL INJ IVP ×3 (05:28→19:51)
[2024-12-26] MEDS: FUROsemide 10 mg/mL SDV 4mL 40 MG IVP (05:29)
[2024-12-26] MEDS: heparin 5,000 unit/mL INJ 1 mL 5000 UNIT SUBCUT ×2 (05:29→17:18)
[2024-12-26 05:54] LABS: Basophils # 0.1 10^3/uL (0.0-0.1); Basophils % 0.5 %; Hematocrit 34.3 % (36-47); Lymphocytes # 1.1 10^3/uL (0.8-4.8); Lymphocytes % 11.1 %; Mean Corpuscular HGB Conc 30.3 g/dL (30-55); Mean Corpuscular Hemoglobin 27.2 pg (27-33); Mean Corpuscular Volume 89.8 fl (85-98); Monocytes # 0.2 10^3/uL (0.2-0.9); Monocytes % 2.3 %; Neutrophils # 8.08 10^3/uL (1.8-7.7); Neutrophils % 84.7 %; Nucleated Red Blood Cells % 0 %; Platelet Count 333 10^3/cmm (157-399); Red Blood Count 3.82 10^6/uL (3.85-5.65); Red Cell Distribution Width 15.1 % (12.1-15.1); White Blood Count 9.54 10^3/uL (3.29-11.43)
[2024-12-26] MEDS: acetaminophen 325 mg Tablet 650 MG PO ×2 (06:08→15:07)
[2024-12-26 06:22] LABS: Albumin Level 3.7 g/dL (3.5-5.2); Anion Gap 17.1 (5-19); Blood Urea Nitrogen 28 mg/dL (8-23); Calcium 10.2 mg/dL (8.5-10.5); Carbon Dioxide 34 mmol/L (22-29); Chloride 97 mmol/L (98-107); Creatinine Clr Calc Pharmacy 59.1821; Glucose 189 mg/dL (65-115); Phosphorus 3.5 mg/dL (2.5-4.5); Potassium 4.1 mmol/L (3.5-5.1); Sodium 144 mmol/L (136-145)
[2024-12-26] MEDS: BuSPIRONE 10 mg Tablet PO ×3 (09:09→19:51)
[2024-12-26] MEDS: doxycycline 100 mg Tablet PO ×2 (09:09→17:18)
[2024-12-26] MEDS: LORazepam 0.5 mg Tablet PO ×3 (09:09→19:51)
[2024-12-26] MEDS: HYDROcodone-acetaminophen 10-325 mg Tablet 1 TAB PO ×2 (09:09→17:18)
[2024-12-26] MEDS: ipratropium-albuterol 3 mL Neb INHALATION ×3 (09:26→20:07)
[2024-12-26] MEDS: hyDRALAzine 20 mg/mL INJ 1 mL 5 MG IVP (11:12)
[2024-12-26] MEDS: ondansetron hcl ODT 4 mg Tab PO (11:12)
[2024-12-26] MEDS: sodium chloride 0.9% 500 ML IV (11:13)
--- NOTE | 2024-12-26 15:57 | PM.PN ---
Subjective Subjective: Shortness of breath is better Vitals/I&O/Wt Last Vital Signs Temp 98.3 F 12/26/24 11:34 Pulse 116 H 12/26/24 13:31 Resp 24 H 12/26/24 13:31 BP 169/96 12/26/24 11:34 Pulse Ox 97 12/26/24 13:31 O2 Del Method Nasal Cannula 12/26/24 13:31 O2 Flow Rate 3 12/26/24 13:31 12/26/24 12/26/24 12/26/24 06:59 14:59 22:59 Intake Total 440 / 800 980 / 980 Output Total 750 / 750 Balance 440 / -1000 230 / 230 Physical Exam Narrative: GENERAL: Patient is alert, awake and oriented x3. HEART: Regular S1 and S2. No murmur, rub or gallop. LUNGS: Decreased breath sound with expiratory phase prolonged bilaterally. CENTRAL NERVOUS SYSTEM: Grossly nonfocal. EXTREMITIES: Lower extremities with out edema trace + bilaterally with cellulitis is better improved Urinary Catheter Management: Morgan: Cath Placed During This Visit: yes Reason for Continuing Indwelling Catheter: Assist Healing of Perineal & Sacral Wounds- Incontinent Patients Urinary Catheter Date of Insertion: 12/23/24 Urinary Catheter Time of Insertion: 13:30 Data 12/26/24 05:13 12/26/24 05:13 A&P Assessment and plan (1) Congestive heart failure: (2) COPD (chronic obstructive pulmonary disease): Plan Will continue IV Lasix tonight and switch patient to 40 mg once day from tomorrow Add Aldactone 25 mg p.o. once a day from today Increase losartan to 50 mg twice daily for better blood pressure control PDMP PDMP Reviewed: Not Reviewed Attestations Medical Necessity Statement*: As per medicine Coding Level of Care Code Acute Code for [facility] Fwd Diagnoses Congestive heart failure I50.9 Heart failure chronicity: acute on chronic Heart failure type: unspecified Chronic obstructive pulmonary disease, unspecified COPD type J44.9 COPD type: unspecified COPD
--- NOTE | 2024-12-26 16:50 | P.PN_ITS ---
Subjective 2 Subjective: States that she does not feel great today. She says that she is felt dehydrated, more tired and achy. States that her leg is feeling better. She still very short of breath states that she has had some episodes of fast breathing. She is also very nauseated. Vitals/I&O/Wt Last Vital Signs Temp 98.6 F 12/26/24 16:00 Pulse 126 H 12/26/24 16:00 Resp 19 H 12/26/24 16:00 BP 162/78 12/26/24 16:00 Pulse Ox 92 12/26/24 16:00 O2 Del Method Nasal Cannula 12/26/24 16:00 O2 Flow Rate 3 12/26/24 13:31 12/26/24 12/26/24 12/26/24 06:59 14:59 22:59 Intake Total 440 / 800 980 / 980 Output Total 750 / 750 Balance 440 / -1000 230 / 230 Physical Exam 2 Narrative: General: Awake, alert. No acute distess. HEENT: normocephalic, atraumatic, neck is supple. dry mucous membranes with tenting of the skin. Lungs: diminished breath sounds bilaterally, mild bibasilar crackles, no wheezes Heart: regular rate and rhythm Abdomen: soft, nontender, normal bowel sounds Extremities: Bilateral pitting pedal edema, 2+. Erythematous, raised, tender rash present on the left lower extremity. Neurology: no focal motor or sensory deficits. Urinary Catheter Management: Morgan: Cath Placed During This Visit: yes Reason for Continuing Indwelling Catheter: Assist Healing of Perineal & Sacral Wounds- Incontinent Patients Urinary Catheter Date of Insertion: 12/23/24 Urinary Catheter Time of Insertion: 13:30 Data 12/26/24 05:13 12/26/24 05:13 A&P Assessment and plan (1) Congestive heart failure: (2) Hypoxemia: (3) Right lower lobe lung mass: (4) Pulmonary hypertension: (5) COPD (chronic obstructive pulmonary disease): Plan 79 y/o F admitted for Acute HRpEF, cellulitis, elevated troponin, Acute hypoxic respiratory failure. Continue inpatient monitoring. Cardiology is consulted and appreciate their recommendations. Echo with normal EF at 60%. Diastolic dysfunction. Currently on supplemental oxygen of 4L. Continue RAAT. Wean oxygen as tolerated. BP and HR elevated today. She appears dry. Will give NS bolus. Increase Losartan to 50 BID. Continue lasix. Switch to daily tomorrow. Continue Strict I/O's. Cellulitis remains present, but slightly improved. Continue Ceftriaxone and doxycycline to cover cellulitis and respiratory illness. Will add zofran for nausea. Code Status: Full IVF: None, small NS bolus today. DVT PPx: Heparin GI PPx: none ABx: Rocephin, doxycycline Diet: Cardiac Discharge plan: TBD. PDMP PDMP Reviewed: Not Reviewed Attestations 2 Medical Necessity Statement*: Patient to continue inpatient care today for decompensated HF requiring IV lasix and treatment of cellulitis. Coding Level of Care Code Acute Code for [facility] Fwd Moderate MDM includes number and complexity of problems actively addressed during encounter, amount and/or complexity of data reviewed/ordered and described risk of complication, morbidity or mortality of management as documented Diagnoses Congestive heart failure I50.9 Heart failure chronicity: acute on chronic Heart failure type: unspecified Hypoxemia R09.02 Right lower lobe lung mass R91.8 Pulmonary hypertension I27.20 Chronic obstructive pulmonary disease, unspecified COPD type J44.9 COPD type: unspecified COPD
--- NOTE | 2024-12-26 17:04 | ECG_ITS ---
[facility]: [facility]24[facility] Pat Name: Leeanne Chau Department: Room: 259 Gender: Female [employer]: : 1945 Requested By: Artur Salinas Order Number: [id number] Eddie MD: Yves Be M.D. Measurements Intervals [place] Rate: 125 P: 60 MT: 168 QRS: 60 QRSD: 100 T: 52 QT: 296 QTc: 427 Interpretive Statements SINUS TACHYCARDIA Compared to ECG 12/23/2024 20:38:24 Sinus rhythm no longer present Electronically Signed On 12-27-2024 08:58:21 CDT by Yves Be M.D. [email or web address]
--- NOTE | 2024-12-26 17:05 | XRR_ITS ---
PROCEDURE INFORMATION: Exam: XR Chest Exam date and time: 12/26/2024 5:47 PM Age: 79 years old Clinical indication: Pain; Shortness of breath; Chest pressure; Additional info: Chest pain, shortness of breath TECHNIQUE: Imaging protocol: Radiologic exam of the chest. Views: 1 view. COMPARISON: CR XR chest 1V portable [id number] 12/24/2024 7:05 AM FINDINGS: Lungs: Unremarkable. No consolidation. Pleural spaces: Unremarkable. No pleural effusion. No pneumothorax. Heart/Mediastinum: Unremarkable. No cardiomegaly. Bones/joints: Unremarkable. XR/XR chest 1V portable [id number] IMPRESSION: No acute findings.
[2024-12-26] MEDS: spironolactone 25 mg Tablet PO (17:18)
[2024-12-26] MEDS: losartan 50 mg Tablet PO (17:18)
[2024-12-26] MEDS: cefTRIAXone 1,000 mg SDV 1000 MG IVP (17:19)
[2024-12-27] VITALS (12 sets, daily range): BP systolic 97–149; BP diastolic 61–87; PULSE 65–108; RESP 17–22; TEMP 36.4–36.8; O2SAT 93–100
[2024-12-27] MEDS: HYDROcodone-acetaminophen 10-325 mg Tablet 1 TAB PO ×3 (02:34→19:41)
[2024-12-27] MEDS: methylPREDNISolone sod succ 40 mg/mL INJ IVP (04:10)
[2024-12-27 06:11] LABS: Basophils % 0.1 %; Hematocrit 30.8 % (36-47); Lymphocytes # 1.1 10^3/uL (0.8-4.8); Lymphocytes % 7.5 %; Mean Corpuscular HGB Conc 30.5 g/dL (30-55); Mean Corpuscular Hemoglobin 27.7 pg (27-33); Mean Corpuscular Volume 90.9 fl (85-98); Mean Platelet Volume 9.8 fL (7.4-10.4); Monocytes # 0.8 10^3/uL (0.2-0.9); Monocytes % 5.2 %; Neutrophils # 12.72 10^3/uL (1.8-7.7); Neutrophils % 86.3 %; Nucleated Red Blood Cells % 0 %; Platelet Count 350 10^3/cmm (157-399); Red Blood Count 3.39 10^6/uL (3.85-5.65); Red Cell Distribution Width 15.4 % (12.1-15.1); White Blood Count 14.76 10^3/uL (3.29-11.43)
[2024-12-27] MEDS: heparin 5,000 unit/mL INJ 1 mL 5000 UNIT SUBCUT ×2 (06:17→17:24)
[2024-12-27 06:35] LABS: Alanine Aminotransferase 12 U/L (0-33); Albumin Level 3.8 g/dL (3.5-5.2); Alkaline Phosphatase 66 U/L (35-105); Anion Gap 15.7 (5-19); Aspartate Amino Transferase 14 U/L (0-32); Blood Urea Nitrogen 33 mg/dL (8-23); Calcium 9.5 mg/dL (8.5-10.5); Carbon Dioxide 31 mmol/L (22-29); Chloride 102 mmol/L (98-107); Creatinine Clr Calc Pharmacy 66.5133; Globulin 2.7 g/dL (1.3-4.6); Glucose 146 mg/dL (65-115); Osmolality Calculated 308 mOsm/kg (285-295); Potassium 4.7 mmol/L (3.5-5.1); Sodium 144 mmol/L (136-145); Total Bilirubin 0.2 mg/dL (0.15-1.2); Total Protein 6.5 g/dL (6.6-8.7)
[2024-12-27] MEDS: ipratropium-albuterol 3 mL Neb INHALATION ×3 (08:13→19:52)
[2024-12-27] MEDS: losartan 50 mg Tablet PO (09:07)
[2024-12-27] MEDS: LORazepam 0.5 mg Tablet PO ×2 (09:07→15:10)
[2024-12-27] MEDS: BuSPIRONE 10 mg Tablet PO ×3 (09:07→21:22)
[2024-12-27] MEDS: spironolactone 25 mg Tablet PO (09:07)
[2024-12-27] MEDS: doxycycline 100 mg Tablet PO ×2 (09:07→17:23)
--- NOTE | 2024-12-27 10:20 | PM.PN ---
Subjective Subjective: Patient doing okay this morning. No chest pain. She was -1970 L over 24 hours. Oxygen saturation 96% on nasal cannula. Creatinine stable at 0.8. Vitals/I&O/Wt Last Vital Signs Temp 97.9 F 12/27/24 09:05 Pulse 99 12/27/24 09:05 Resp 19 H 12/27/24 09:05 BP 149/82 12/27/24 09:05 Pulse Ox 96 12/27/24 09:05 O2 Del Method Nasal Cannula 12/27/24 09:05 O2 Flow Rate 3 12/27/24 08:13 12/26/24 12/27/24 12/27/24 22:59 06:59 14:59 Intake Total 600 / 1580 120 / 120 Output Total 1600 / 2350 1200 / 3550 Balance -1600 / -1370 -600 / -1970 120 / 120 Weight last 48 hrs Weight 235 lb Physical Exam Narrative: General: No apparent distress, healthy appearing, well nourished HENMT: normoceophalic Muskuloskeletal: Full ROM Respiratory: Normal respiratory effort, clear to auscultation bilaterally throughout all lung moseley, no use of accessory muscles Cardio: No JVD, regular rate, regular rhythm, S1 S2 normal, no murmurs, peripheral pulses 2+ radial palpated bilaterally Extremities: Full ROM, normal, normal capillary refill, no cyanosis, trace edema bilateral lower extremities Neuro: Alert and oriented x4, no focal motor deficits Psych: Affect normal, denies suicidal ideation, mental status grossly normal Skin: Slight redness to bilateral lower extremities that has improved since admission no signs of cellulitis present Urinary Catheter Management: Morgan: Cath Placed During This Visit: yes Reason for Continuing Indwelling Catheter: Assist Healing of Perineal & Sacral Wounds- Incontinent Patients Urinary Catheter Date of Insertion: 12/23/24 Urinary Catheter Time of Insertion: 13:30 Data 12/27/24 06:00 12/27/24 06:00 A&P Assessment and plan (1) Congestive heart failure: (2) COPD (chronic obstructive pulmonary disease): Plan Switch patient to lasix 40 mg once daily Continue Aldactone 25 mg p.o. once a day from today. Will have to watch creatinine and renal function closely. Creat normal at 0.8 today. Continue losartan to 50 mg twice daily for blood pressure control PDMP PDMP Reviewed: Not Reviewed [facility] Medical Necessity Statement*: Defer to primary Coding Level of Care Code Acute Code for g Fwd Diagnoses Congestive heart failure I50.9 Heart failure chronicity: acute on chronic Heart failure type: unspecified Chronic obstructive pulmonary disease, unspecified COPD type J44.9 COPD type: unspecified COPD
[2024-12-27] MEDS: FUROsemide 40 mg Tablet PO ×2 (11:08→17:23)
--- NOTE | 2024-12-27 13:30 | PC.SOCIAL ---
IMM Updated Updated pt on IMM. No questions voiced. Provided pt a copy. Initialed, dated, & timed a copy & placed in chart.
--- NOTE | 2024-12-27 16:27 | P.PN_ITS ---
Subjective 2 Subjective: patient reports feeling SOB today, very nervous at the idea of going home in the upcoming days Medications: Reviewed: Yes Vitals/I&O/Wt Last Vital Signs Temp 98.2 F 12/27/24 15:58 Pulse 96 12/27/24 15:58 Resp 22 H 12/27/24 15:58 BP 97/61 12/27/24 15:58 Pulse Ox 100 12/27/24 15:58 O2 Del Method Nasal Cannula 12/27/24 15:58 O2 Flow Rate 3 12/27/24 15:58 12/27/24 12/27/24 12/27/24 06:59 14:59 22:59 Intake Total 600 / 1580 120 / 120 Output Total 1200 / 3550 Balance -600 / -1970 120 / 120 Weight last 48 hrs Weight 106.594 kg Physical Exam 2 Narrative: General: No acute distress, AO x3 HEENT: PERRLA, pupils bilaterally equal and reactive, pallors not present Chest: scattered wheezing to auscultation B/L along with crackles CVS: S1-S2 regular, no murmurs, no tachycardia, no gallops, no rubs Abdomen: Soft, nontender, no organomegaly, bowel sounds present Neuro: No focal deficits, no facial deformity, AO x3, power 5/5 in all limbs Urinary Catheter Management: Morgan: Cath Placed During This Visit: yes, but has since been removed by the nurse Reason for Continuing Indwelling Catheter: Decision to DC Catheter Urinary Catheter Date of Insertion: 12/23/24 Urinary Catheter Time of Insertion: 13:30 Date Urinary Catheter Removed: 12/27/24 Time Urinary Catheter Discontinued: 11:50 Data 12/27/24 06:00 12/27/24 06:00 A&P Assessment and plan (1) Congestive heart failure: (2) Hypoxemia: (3) Right lower lobe lung mass: (4) Pulmonary hypertension: (5) COPD (chronic obstructive pulmonary disease): Plan 79 y/o F admitted for Acute HRpEF, cellulitis, elevated troponin, Acute hypoxic respiratory failure. Continue inpatient monitoring. Cardiology is consulted and appreciate their recommendations. Echo with normal EF at 60%. Diastolic dysfunction. Currently on supplemental oxygen of 4L. Continue RAAT. Wean oxygen as tolerated. BP and HR elevated today. She appears dry. Will give NS bolus. Increase Losartan to 50 BID. Continue lasix. Switch to daily tomorrow. Continue Strict I/O's. Cellulitis remains present, but slightly improved. Continue Ceftriaxone and doxycycline to cover cellulitis and respiratory illness. Will add zofran for nausea. Code Status: Full IVF: None, small NS bolus today. DVT PPx: Heparin GI PPx: none ABx: Rocephin, doxycycline Diet: Cardiac Discharge plan: TBD. 12/27/24: Net negative by 6L during adission course. LE edema and cellulitis improving. Continue Lasix 40mg BID po. She reports being SOB this morning, had a panic reaction when discharge planning was discussed. Tachycardia with HR up to 120 last evening, currently ranging ~ 100. Add metoprolol 25mg BID. Lower dose of losartan to 50mg daily due to low BP with sytsolic at 97 this afternoon. May need to hold aldactone if BP remains low. saturating >95% on 3lpm supplemental 02. Continue scheduled nebs. Transition iv to oral steroids. Add prn Xanax 0.25 mg TID PDMP PDMP Reviewed: Not Reviewed Attestations 2 Medical Necessity Statement*: continued admission for CHF, COPD optimization Coding Level of Care Code Acute Code for Chg Fwd High MDM includes number and complexity of problems actively addressed during encounter, amount and/or complexity of data reviewed/ordered and described risk of complication, morbidity or mortality of management as documented Diagnoses Congestive heart failure I50.9 Heart failure chronicity: acute on chronic Heart failure type: unspecified Hypoxemia R09.02 Right lower lobe lung mass R91.8 Pulmonary hypertension I27.20 Chronic obstructive pulmonary disease, unspecified COPD type J44.9 COPD type: unspecified COPD
[2024-12-27] MEDS: cefTRIAXone 1,000 mg SDV 1000 MG IVP (17:23)
[2024-12-27] MEDS: predniSONE 20 mg Tablet 40 MG PO (17:24)
[2024-12-27] MEDS: metoprolol tartrate 25 mg Tablet PO (21:22)
[2024-12-28] VITALS (9 sets, daily range): BP systolic 151–176; BP diastolic 69–83; PULSE 68–93; RESP 16–20; TEMP 36.4–37.6; O2SAT 93–97
[2024-12-28] MEDS: ipratropium-albuterol 3 mL Neb INHALATION ×3 (02:17→20:18)
[2024-12-28] MEDS: HYDROcodone-acetaminophen 10-325 mg Tablet 1 TAB PO ×2 (03:54→17:53)
[2024-12-28 05:39] LABS: Basophils % 0.2 %; Hematocrit 31.8 % (36-47); Lymphocytes # 1.1 10^3/uL (0.8-4.8); Mean Corpuscular HGB Conc 30.2 g/dL (30-55); Mean Corpuscular Hemoglobin 27.6 pg (27-33); Mean Corpuscular Volume 91.4 fl (85-98); Mean Platelet Volume 9.7 fL (7.4-10.4); Monocytes # 0.6 10^3/uL (0.2-0.9); Monocytes % 5.5 %; Neutrophils # 8.51 10^3/uL (1.8-7.7); Nucleated Red Blood Cells % 0 %; Platelet Count 321 10^3/cmm (157-399); Red Blood Count 3.48 10^6/uL (3.85-5.65); Red Cell Distribution Width 15.4 % (12.1-15.1); White Blood Count 10.38 10^3/uL (3.29-11.43)
[2024-12-28 05:54] LABS: Alanine Aminotransferase 13 U/L (0-33); Albumin Level 3.8 g/dL (3.5-5.2); Alkaline Phosphatase 64 U/L (35-105); Anion Gap 17.4 (5-19); Aspartate Amino Transferase 13 U/L (0-32); Blood Urea Nitrogen 37 mg/dL (8-23); Calcium 9.1 mg/dL (8.5-10.5); Carbon Dioxide 30 mmol/L (22-29); Chloride 97 mmol/L (98-107); Creatinine Clr Calc Pharmacy 58.6655; Globulin 2.6 g/dL (1.3-4.6); Glucose 168 mg/dL (65-115); Osmolality Calculated 303 mOsm/kg (285-295); Potassium 4.4 mmol/L (3.5-5.1); Sodium 140 mmol/L (136-145); Total Bilirubin 0.2 mg/dL (0.15-1.2); Total Protein 6.4 g/dL (6.6-8.7)
[2024-12-28] MEDS: heparin 5,000 unit/mL INJ 1 mL 5000 UNIT SUBCUT ×2 (05:54→17:51)
[2024-12-28] MEDS: metoprolol tartrate 25 mg Tablet PO ×2 (09:00→21:00)
[2024-12-28] MEDS: predniSONE 20 mg Tablet 40 MG PO (09:04)
[2024-12-28] MEDS: spironolactone 25 mg Tablet PO (09:04)
[2024-12-28] MEDS: losartan 50 mg Tablet PO (09:04)
[2024-12-28] MEDS: BuSPIRONE 10 mg Tablet PO ×3 (09:04→21:00)
[2024-12-28] MEDS: FUROsemide 40 mg Tablet PO (09:04)
[2024-12-28] MEDS: doxycycline 100 mg Tablet PO ×2 (09:04→17:51)
[2024-12-28] MEDS: ondansetron hcl ODT 4 mg Tab PO ×2 (10:46→17:53)
[2024-12-28] MEDS: methylPREDNISolone sod succ 125 mg/2 mL INJ 60 MG IVP ×2 (10:47→17:51)
--- NOTE | 2024-12-28 11:00 | P.PN_ITS ---
<Statement entered by Lamont Rodríguez MD - 12/28/24 17:34> Patient was evaluated and cared for in conjunction with an advanced practice practitioner. I personally examined the patient and reviewed the chart and all pertinent data including imaging, telemetry, and laboratory results. I discussed the patient in detail with the advanced practice practitioner. Please see their note for complete H&P testing result and agreed upon plan of care for the patient. Patient appeared to be euvolemic lower extremity and has gone down shortness of breath is at the baseline GENERAL: Patient is alert, awake and oriented x3. HEART: Regular S1 and S2. No murmur, rub or gallop. LUNGS: Clear to auscultate bilaterally. CENTRAL NERVOUS SYSTEM: Grossly nonfocal. EXTREMITIES: Lower extremities with trace edema and wrinkle will both lower extremity without evidence of more cellulitis Assessment and plan Acute decompensated diastolic heart failure now compensated COPD exacerbation Switch patient to p.o. 40 mg of Lasix Continue Aldactone Add Entresto Heart failure education Follow-up with cardiology in 10 days Subjective 2 Subjective: Patient doing well no complaints. Blood pressure slightly elevated 151/76 pulse of 93. She has been started on Lopressor 25 twice daily. Creatinine is stable at 0.9. RODRIGO difficult to assess due to patient's catheter was discontinued and does not appear to be accurately tracked. Vitals/I&O/Wt Last Vital Signs Temp 98.2 F 12/28/24 08:00 Pulse 93 12/28/24 08:00 Resp 16 12/28/24 08:00 BP 151/76 12/28/24 09:04 Pulse Ox 97 12/28/24 08:00 O2 Del Method Nasal Cannula 12/28/24 08:00 O2 Flow Rate 3 12/28/24 08:00 12/27/24 12/28/24 12/28/24 22:59 06:59 14:59 Intake Total 360 / 480 0 / 480 360 / 360 Balance 360 / 480 0 / 480 360 / 360 Weight last 48 hrs Weight 231 lb 14.4 oz Weight 235 lb Physical Exam 2 Narrative: General: No apparent distress, healthy appearing, well nourished HENMT: normoceophalic Muskuloskeletal: Full ROM Respiratory: Normal respiratory effort, clear to auscultation bilaterally throughout all lung moseley, no use of accessory muscles Cardio: No JVD, regular rate, regular rhythm, S1 S2 normal, no murmurs, peripheral pulses 2+ radial palpated bilaterally Extremities: Full ROM, normal, normal capillary refill, no cyanosis, no edema bilateral lower extremities Neuro: Alert and oriented x4, no focal motor deficits Psych: Affect normal, denies suicidal ideation, mental status grossly normal Skin: Slight redness to bilateral lower extremities that has improved since admission no signs of cellulitis present Urinary Catheter Management: Morgan: Cath Placed During This Visit: yes, but has since been removed by the nurse Reason for Continuing Indwelling Catheter: Decision to DC Catheter Urinary Catheter Date of Insertion: 12/23/24 Urinary Catheter Time of Insertion: 13:30 Date Urinary Catheter Removed: 12/27/24 Time Urinary Catheter Discontinued: 11:50 Data 12/28/24 05:14 12/28/24 05:14 A&P Assessment and plan (1) Congestive heart failure: (2) COPD (chronic obstructive pulmonary disease): Plan Continue Lasix 40 twice daily daily. Continue Aldactone 25 mg p.o. once a day from today. Will have to watch creatinine and renal function closely. Creat normal at 0.9 today. Continue losartan. Will switch patient to Entresto for heart failure management. PDMP PDMP Reviewed: Not Reviewed Attestations 2 Medical Necessity Statement*: Deferred to primary Coding Level of Care Code Acute Code for [facility] Diagnoses Congestive heart failure I50.9 Heart failure chronicity: acute on chronic Heart failure type: unspecified Chronic obstructive pulmonary disease, unspecified COPD type J44.9 COPD type: unspecified COPD
--- NOTE | 2024-12-28 13:30 | PM.PN ---
Subjective Subjective: c/o still feeling short of breath, diffuse wheezing to auscultation B/L LE swelling continues to significantly improve Medications: Reviewed: Yes Vitals/I&O/Wt Last Vital Signs Temp 99.6 F 12/28/24 12:00 Pulse 70 12/28/24 12:00 Resp 19 H 12/28/24 12:00 BP 162/79 12/28/24 12:00 Pulse Ox 93 12/28/24 12:00 O2 Del Method Nasal Cannula 12/28/24 12:00 O2 Flow Rate 3 12/28/24 08:00 12/27/24 12/28/24 12/28/24 22:59 06:59 14:59 Intake Total 360 / 480 0 / 480 840 / 840 Balance 360 / 480 0 / 480 840 / 840 Weight last 48 hrs Weight 105.188 kg Weight 106.594 kg Physical Exam Narrative: General: No acute distress, AO x3 HEENT: PERRLA, pupils bilaterally equal and reactive, pallors not present Chest: scattered wheezing to auscultation B/L along with crackles CVS: S1-S2 regular, no murmurs, no tachycardia, no gallops, no rubs Abdomen: Soft, nontender, no organomegaly, bowel sounds present Neuro: No focal deficits, no facial deformity, AO x3, power 5/5 in all limbs Urinary Catheter Management: Morgan: Cath Placed During This Visit: yes, but has since been removed by the nurse Reason for Continuing Indwelling Catheter: Decision to DC Catheter Urinary Catheter Date of Insertion: 12/23/24 Urinary Catheter Time of Insertion: 13:30 Date Urinary Catheter Removed: 12/27/24 Time Urinary Catheter Discontinued: 11:50 Data 12/28/24 05:14 12/28/24 05:14 A&P Assessment and plan (1) Congestive heart failure: (2) Hypoxemia: (3) Right lower lobe lung mass: (4) Pulmonary hypertension: (5) COPD (chronic obstructive pulmonary disease): Plan 79 y/o F admitted for Acute HRpEF, cellulitis, elevated troponin, Acute hypoxic respiratory failure. Continue inpatient monitoring. Cardiology is consulted and appreciate their recommendations. Echo with normal EF at 60%. Diastolic dysfunction. Currently on supplemental oxygen of 4L. Continue RAAT. Wean oxygen as tolerated. BP and HR elevated today. She appears dry. Will give NS bolus. Increase Losartan to 50 BID. Continue lasix. Switch to daily tomorrow. Continue Strict I/O's. Cellulitis remains present, but slightly improved. Continue Ceftriaxone and doxycycline to cover cellulitis and respiratory illness. Will add zofran for nausea. Code Status: Full IVF: None, small NS bolus today. DVT PPx: Heparin GI PPx: none ABx: Rocephin, doxycycline Diet: Cardiac Discharge plan: TBD. 12/27/24: Net negative by 6L during adission course. LE edema and cellulitis improving. Continue Lasix 40mg BID po. She reports being SOB this morning, had a panic reaction when discharge planning was discussed. Tachycardia with HR up to 120 last evening, currently ranging ~ 100. Add metoprolol 25mg BID. Lower dose of losartan to 50mg daily due to low BP with sytsolic at 97 this afternoon. May need to hold aldactone if BP remains low. saturating >95% on 3lpm supplemental 02. Continue scheduled nebs. Transition iv to oral steroids. Add prn Xanax 0.25 mg TID 12/28/24: LE edema continues to improve. Cellulitis resolved. Started on Entresto today after discontinuing losartan. Continue metoprolol 25mg BID. Wheezing noted worsening today. Increase methylprednisone to 60mg iv every 8 hrs. Continue PT/OT. T max 99.6 Today. checl RVP. PDMP PDMP Reviewed: Not Reviewed Attestations Medical Necessity Statement*: increased wheezing today, d/c prednisone, start iv methylpred 60mg q8h today Coding Level of Care Code Acute Code for [facility] Diagnoses Congestive heart failure I50.9 Heart failure chronicity: acute on chronic Heart failure type: unspecified Hypoxemia R09.02 Right lower lobe lung mass R91.8 Pulmonary hypertension I27.20 Chronic obstructive pulmonary disease, unspecified COPD type J44.9 COPD type: unspecified COPD
[2024-12-28] MEDS: ALPRAZolam 0.5 mg Tablet 0.25 MG PO (13:37)
[2024-12-28] MEDS: cefTRIAXone 1,000 mg SDV 1000 MG IVP (17:51)
[2024-12-28 23:17] LABS: Adenovirus Not Detected (NOT DETECT); Chlamydia Pneumoniae Not Detected (NOT DETECT); Coronavirus 229E,HKU1,NL63,OC4 Not Detected (NOT DETECT); Human Metapneumovirus Not Detected (NOT DETECT); Human Rhinovirus/Enterovirus Not Detected (NOT DETECT); Influenza A Not Detected (NOT DETECT); Influenza A H1 Not Detected (NOT DETECT); Influenza A H1-2009 Not Detected (NOT DETECT); Influenza A H3 Not Detected (NOT DETECT); Influenza B Not Detected (NOT DETECT); Mycoplasma Pneumoniae Not Detected (NOT DETECT); Parainfluenza Virus Type 1 Not Detected (NOT DETECT); Parainfluenza Virus Type 2 Not Detected (NOT DETECT); Parainfluenza Virus Type 3 Not Detected (NOT DETECT); Parainfluenza Virus Type 4 Not Detected (NOT DETECT); Respiratory Syncytial Virus A Not Detected (NOT DETECT); Respiratory Syncytial Virus B Not Detected (NOT DETECT); SARS-COV-2 Not Detected (NOT DETECT)
[2024-12-29] VITALS (7 sets, daily range): BP systolic 136–178; BP diastolic 71–100; PULSE 59–68; RESP 16–20; TEMP 36.4–36.7; O2SAT 95–98
[2024-12-29] MEDS: methylPREDNISolone sod succ 125 mg/2 mL INJ 60 MG IVP ×2 (02:05→08:52)
[2024-12-29] MEDS: HYDROcodone-acetaminophen 10-325 mg Tablet 1 TAB PO ×2 (02:05→08:52)
[2024-12-29] MEDS: heparin 5,000 unit/mL INJ 1 mL 5000 UNIT SUBCUT (05:14)
[2024-12-29 05:38] LABS: Basophils % 0.2 %; Hematocrit 34.4 % (36-47); Lymphocytes # 1.3 10^3/uL (0.8-4.8); Lymphocytes % 12.7 %; Mean Corpuscular HGB Conc 29.7 g/dL (30-55); Mean Corpuscular Hemoglobin 27.3 pg (27-33); Mean Platelet Volume 9.6 fL (7.4-10.4); Monocytes # 0.8 10^3/uL (0.2-0.9); Monocytes % 7.6 %; Neutrophils # 7.92 10^3/uL (1.8-7.7); Neutrophils % 77.6 %; Nucleated Red Blood Cells % 0 %; Platelet Count 369 10^3/cmm (157-399); Red Blood Count 3.74 10^6/uL (3.85-5.65); Red Cell Distribution Width 14.9 % (12.1-15.1); White Blood Count 10.21 10^3/uL (3.29-11.43)
[2024-12-29 06:00] LABS: Alanine Aminotransferase 11 U/L (0-33); Albumin Level 3.9 g/dL (3.5-5.2); Alkaline Phosphatase 71 U/L (35-105); Anion Gap 13.3 (5-19); Aspartate Amino Transferase 9 U/L (0-32); Blood Urea Nitrogen 35 mg/dL (8-23); Calcium 9.3 mg/dL (8.5-10.5); Carbon Dioxide 31 mmol/L (22-29); Chloride 96 mmol/L (98-107); Creatinine Clr Calc Pharmacy 58.8278; Globulin 2.8 g/dL (1.3-4.6); Glucose 196 mg/dL (65-115); Magnesium 2.1 mg/dL (1.7-2.3); Osmolality Calculated 295 mOsm/kg (285-295); Potassium 4.3 mmol/L (3.5-5.1); Sodium 136 mmol/L (136-145); Total Bilirubin 0.2 mg/dL (0.15-1.2); Total Protein 6.7 g/dL (6.6-8.7)
[2024-12-29] MEDS: ipratropium-albuterol 3 mL Neb INHALATION (07:55)
[2024-12-29] MEDS: BuSPIRONE 10 mg Tablet PO (08:15)
[2024-12-29] MEDS: doxycycline 100 mg Tablet PO (08:15)
[2024-12-29] MEDS: FUROsemide 40 mg Tablet PO (08:15)
[2024-12-29] MEDS: spironolactone 25 mg Tablet PO (08:52)
--- NOTE | 2024-12-29 10:16 | PC.OT ---
OT TREATMENT ATTEMPTED THIS A.M. PATIENT IN BED AND REPORTS THAT SHE IS GOING TO REHAB TODAY. THERAPIST OFFERED GROOMING AND BED AND PATIENT REFUSED, STATES, I'M JUST REALLY UPSET . WHEN ASKED WHY SHE WAS UPSET, SHE PAUSED AND STATES, I DON'T WANT TO TALK ABOUT IT. THERAPIST ENSURED NURSE CALL WAS NEARBY, ALL NEEDS IN REACH.
--- NOTE | 2024-12-29 10:20 | P.PN_ITS ---
<Statement entered by Yves Be M.D - 12/31/24 12:47> Patient was cared for in conjunction with an advanced practice practitioner.? I reviewed the chart and all pertinent data including imaging, telemetry, and laboratory results.? I discussed the patient in detail with the advanced practice practitioner.? Please see?their note for progress note, testing results and agreed upon plan of care for the patient. Subjective 2 Subjective: Patient doing well today. -1690 over 24 hours. Creatinine stable at 0.9. Blood pressure stable. She is now back to baseline on oxygen at 3 L O2 sat of 95%. Still has some shortness of breath on exertion but overall she is stable. Vitals/I&O/Wt Last Vital Signs Temp 97.5 F L 12/29/24 04:00 Pulse 59 L 12/29/24 08:00 Resp 20 H 12/29/24 08:00 BP 156/88 12/29/24 08:00 Pulse Ox 98 12/29/24 08:00 O2 Del Method Nasal Cannula 12/29/24 07:50 O2 Flow Rate 2 12/29/24 08:00 12/28/24 12/29/24 12/29/24 22:59 06:59 14:59 Intake Total 480 / 1320 480 / 480 Output Total 2300 / 2300 350 / 2650 Balance -1820 / -980 -350 / -1330 480 / 480 Weight last 48 hrs Weight 233 lb Weight 231 lb 14.4 oz Physical Exam 2 Narrative: General: No apparent distress, healthy appearing, well nourished HENMT: normoceophalic Muskuloskeletal: Full ROM Respiratory: Normal respiratory effort, clear to auscultation bilaterally throughout all lung moseley, no use of accessory muscles Cardio: No JVD, regular rate, regular rhythm, S1 S2 normal, no murmurs, peripheral pulses 2+ radial palpated bilaterally Extremities: Full ROM, normal, normal capillary refill, no cyanosis, no edema bilateral lower extremities Neuro: Alert and oriented x4, no focal motor deficits Psych: Affect normal, denies suicidal ideation, mental status grossly normal Skin: Slight redness to bilateral lower extremities that has improved since admission no signs of cellulitis present Urinary Catheter Management: Morgan: Cath Placed During This Visit: yes, but has since been removed by the nurse Reason for Continuing Indwelling Catheter: Decision to DC Catheter Urinary Catheter Date of Insertion: 12/23/24 Urinary Catheter Time of Insertion: 13:30 Date Urinary Catheter Removed: 12/27/24 Time Urinary Catheter Discontinued: 11:50 Data 12/29/24 04:44 12/29/24 04:44 A&P Assessment and plan (1) Congestive heart failure: (2) COPD (chronic obstructive pulmonary disease): Plan Continue Lasix 40 daily. Continue Aldactone 25 mg p.o. once a day from today. Creatinine stable at 0.9. Discontinued losartan. Patient is getting Entresto for heart failure management. From a cardiology perspective may be discharged. Is my understanding she is going to rehab. F/U in the clinic in 1 week. PDMP PDMP Reviewed: Not Reviewed Attestations 2 Medical Necessity Statement*: Deferred to primary Coding Level of Care Code Acute Code for [facility] Fwd Diagnoses Congestive heart failure I50.9 Heart failure chronicity: acute on chronic Heart failure type: unspecified Chronic obstructive pulmonary disease, unspecified COPD type J44.9 COPD type: unspecified COPD
--- NOTE | 2024-12-29 10:25 | PC.SOCIAL ---
IMM Updated Updated pt on IMM. No questions voiced. Provided pt a copy. Initialed, dated, & timed copy in chart.
[2024-12-29] MEDS: ALPRAZolam 0.5 mg Tablet 0.25 MG PO (11:19)
--- NOTE | 2024-12-29 12:02 | P.DS_ITS ---
Discharge Providers Date of Admission: 12/23/24 18:13 Date of Discharge: December 29, 2024 Attending Provider at Admission: Talisha Jonas MD Attending Provider at Discharge: Lupe Jama MD Primary Care Provider: Damien Brewer DO Diagnoses at Discharge Discharge Diagnosis (1) Congestive heart failure: Status: Acute Qualifiers: Heart failure chronicity: acute on chronic Heart failure type: unspecified Qualified Code(s): I50.9 - Heart failure, unspecified (2) COPD (chronic obstructive pulmonary disease): Status: Acute Qualifiers: COPD type: unspecified COPD Qualified Code(s): J44.9 - Chronic obstructive pulmonary disease, unspecified Reason for Visit Reason for Visit: sob - thigh edema Hospital Course Hospital Course Leeanne Chau is a 79 year old female with medical history significant for COPD and CHF. She presented to the emergency room because of extreme shortness. X-ray done here was remarkable for cephalization pulmonary vascular congestion. CTA chest was negative for PE. she was treated with iv diuresis, transitioned to po lasix at discharge. Also treated for COPD exacerbation with iv steroids and scheduled nebulization. Cardiology service was consulted and heart failure regimen optimized. Hospital course also notable for cellulitis for which she was treated with iv abx. Patient improved with these interventions and is discharged in improved condition Physical Exam Narrative: General: No acute distress, AO x3 HEENT: PERRLA, pupils bilaterally equal and reactive, pallors not present Chest: Normal vesicular breath sounds, no added sounds, equal good air entry bilaterally CVS: S1-S2 regular, no murmurs, no tachycardia, no gallops, no rubs Abdomen: Soft, nontender, no organomegaly, bowel sounds present Neuro: No focal deficits, no facial deformity, AO x3, power 5/5 in all limbs Urinary Catheter Management: Morgan: Cath Placed During This Visit: yes, but has since been removed by the nurse Reason for Continuing Indwelling Catheter: Decision to DC Catheter Urinary Catheter Date of Insertion: 12/23/24 Urinary Catheter Time of Insertion: 13:30 Date Urinary Catheter Removed: 12/27/24 Time Urinary Catheter Discontinued: 11:50 Discharge Data Studies Completed and Pending Completed Studies During Hospitalization Category Date Time Status CT chest wo con [id number] Stat Cat Scan 12/23/24 17:31 Completed CTA PE [CT angio chest PE protcl [id number]] Routine Cat Scan 12/24/24 05:22 Completed XR chest 1V portable [id number] Routine Exams 12/24/24 07:00 Completed XR chest 1V portable [id number] Routine Exams 12/26/24 17:05 Completed XR chest 1V portable [id number] Stat Exams 12/23/24 13:39 Completed US echo complete [CV. echo complete* [id number]] Routine Ultrasound 12/23/24 17:28 Completed Radiology Impressions Chest CT 12/23/24 17:31 IMPRESSION: 1. Prominent cardiomegaly with mild pericardial effusion. 2. Peribronchial cuffing suspect mild pulmonary edema. 3. Calcifications of the aortic valve. 4. Minimal right posterolateral lower lung atelectatic changes. 5. 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 Chest CTA 12/24/24 05:22 IMPRESSION: 1. No pulmonary embolus. 2. Small pericardial effusion, unchanged from recent prior comparison. Nonspecific and could represent infectious/inflammatory foci versus third-spacing of fluid. Correlate clinically. Chest X-Ray 12/26/24 17:05 IMPRESSION: No acute findings. Laboratory Results WBC 10.21 10^3/uL (3.29-11.43) 12/29/24 04:44 RBC 3.74 10^6/uL (3.85-5.65) L 12/29/24 04:44 Hgb 10.20 g/dL (11.27-16.99) L 12/29/24 04:44 Hct 34.4 % (36-47) L 12/29/24 04:44 MCV 92.0 fl (85-98) 12/29/24 04:44 MCH 27.3 pg (27-33) 12/29/24 04:44 MCHC 29.7 g/dL (30-55) L 12/29/24 04:44 RDW 14.9 % (12.1-15.1) 12/29/24 04:44 Plt Count 369 10^3/cmm (157-399) 12/29/24 04:44 MPV 9.6 fL (7.4-10.4) 12/29/24 04:44 Neut % (Auto) 77.6 % 12/29/24 04:44 Lymph % (Auto) 12.7 % 12/29/24 04:44 [place] % (Auto) 7.6 % 12/29/24 04:44 Eos % (Auto) 0.0 % 12/29/24 04:44 Baso % (Auto) 0.2 % 12/29/24 04:44 Neut # (Auto) 7.92 10^3/uL (1.8-7.7) H 12/29/24 04:44 Lymph # (Auto) 1.3 10^3/uL (0.8-4.8) 12/29/24 04:44 [place] # (Auto) 0.8 10^3/uL (0.2-0.9) 12/29/24 04:44 Eos # (Auto) 0.0 10^3/uL (0.0-0.8) 12/29/24 04:44 Baso # (Auto) 0.0 10^3/uL (0.0-0.1) 12/29/24 04:44 Nucleated RBC % (auto) 0 % 12/29/24 04:44 Total Counted 100 (0-100) 12/25/24 05:14 Atypical Lymphs % 0.0 % (0-5) 12/25/24 05:14 Absolute Neutrophils 3.8 10^3/cmm (1.4-6.5) 12/25/24 05:14 Segmented Neutrophils 61 % 12/25/24 05:14 Band Neutrophils 0.0 % 12/25/24 05:14 Absolute Lymphocytes 2.0 10^3/cmm (1.2-3.4) 12/25/24 05:14 Lymphocytes (Manual) 33 % 12/25/24 05:14 Monocytes (Manual) 6.0 % 12/25/24 05:14 Absolute Monocytes 0.4 10^3/cmm (0.1-0.6) 12/25/24 05:14 Eosinophils (Manual) 0 % 12/25/24 05:14 Absolute Eosinophils 0.0 10^3/cmm (0.0-0.7) 12/25/24 05:14 Basophils (Manual) 0.0 % 12/25/24 05:14 Absolute Basophils 0.0 10^3/cmm (0.0-0.2) 12/25/24 05:14 Nucleated RBCs # 0.0 /100WBC 12/29/24 04:44 Platelet Estimate Normal (Normal) 12/25/24 05:14 Specimen Type Arterial 12/25/24 13:02 Sample Site Radial, right 12/25/24 13:02 ABG pH 7.44 (7.35-7.45) 12/25/24 13:02 ABG pCO2 63.1 mmHg (35-45) H* 12/25/24 13:02 ABG pO2 69.1 mmHg (80.0-100.0) L 12/25/24 13:02 ABG HCO3 42.3 mmol/L (22-26) H 12/25/24 13:02 ABG O2 Saturation 94.5 12/25/24 13:02 ABG Base Excess 15.7 mmol/L (-2.0-2.0) H 12/25/24 13:02 Marquis Test Pos 12/25/24 13:02 A-a O2 Gradient 0.4 mmHg (5-10) L 12/25/24 13:02 Hematocrit 30.8 % (37-47) L 12/25/24 13:02 Hgb O2 Saturation 92.3 % (95-100) L 12/25/24 13:02 Carboxyhemoglobin 1.4 %THgb (0.4-20.1) 12/25/24 13:02 Methemoglobin 1.0 % (0.4-1.5) 12/25/24 13:02 Total Hemoglobin 10.0 g/dL (12-16) L 12/25/24 13:02 Sodium 145.0 mmol/L (131-143) H 12/25/24 13:02 Potassium 3.6 mmol/L (3.5-5.0) 12/25/24 13:02 Glucose 151.0 mg/dL (70-115) H 12/25/24 13:02 Ionized Calcium 1.2 mmol/L (1.1-1.4) 12/25/24 13:02 O2 Delivery Device Nc 12/25/24 13:02 O2 Liters/Min 3.5 % 12/25/24 13:02 Chief Orthoptist ID Gd 12/25/24 13:02 Sodium 136 mmol/L (136-145) 12/29/24 04:44 Potassium 4.3 mmol/L (3.5-5.1) 12/29/24 04:44 Chloride 96 mmol/L (98-107) L 12/29/24 04:44 Carbon Dioxide 31 mmol/L (22-29) H 12/29/24 04:44 Anion Gap 13.3 (5-19) 12/29/24 04:44 BUN 35 mg/dL (8-23) H 12/29/24 04:44 Creatinine 0.9 mg/dL (0.5-0.9) 12/29/24 04:44 GFR Calculation Not Reportable 12/29/24 04:44 Glucose 196 mg/dL (65-115) H 12/29/24 04:44 Estimat Average Glucose 131 12/23/24 13:50 Hemoglobin A1c 6.2 % (4.0-6.0) H 12/23/24 13:50 Calculated Osmolality 295 mOsm/kg (285-295) 12/29/24 04:44 Calcium 9.3 mg/dL (8.5-10.5) 12/29/24 04:44 Phosphorus 3.5 mg/dL (2.5-4.5) 12/26/24 05:13 Magnesium 2.1 mg/dL (1.7-2.3) 12/29/24 04:44 Total Bilirubin 0.2 mg/dL (0.15-1.2) 12/29/24 04:44 AST 9 U/L (0-32) 12/29/24 04:44 ALT 11 U/L (0-33) 12/29/24 04:44 Alkaline Phosphatase 71 U/L (35-105) 12/29/24 04:44 Troponin T Baseline 33 ng/L (0-10) H 12/23/24 13:50 Troponin T 120 Minute 30.76 ng/L (0-10) H 12/23/24 15:42 Delta Troponin T -2.24 ABS# (0-10) L 12/23/24 15:42 Troponin T Hi Sens 6Hr 32.01 ng/L (0-10) H 12/23/24 19:55 Troponin T Hi Sens 6Hr Delta -0.99 ng/L (0-12) L 12/23/24 19:55 NT-Pro-B Natriuret Pep 211 pg/mL (0-450) 12/24/24 02:59 Total Protein 6.7 g/dL (6.6-8.7) 12/29/24 04:44 Albumin 3.9 g/dL (3.5-5.2) 12/29/24 04:44 Globulin 2.8 g/dL (1.3-4.6) 12/29/24 04:44 Triglycerides 219 mg/dL (0-150) H 12/23/24 13:50 Cholesterol 216 mg/dL (0-200) H 12/23/24 13:50 LDL Cholesterol, Calc 115 mg/dL (50-129) 12/23/24 13:50 Total VLDL Cholesterol 44 mg/dL (0-30) H 12/23/24 13:50 HDL Cholesterol 57 mg/dL (60-100) L 12/23/24 13:50 Cholesterol/HDL Ratio 3.79 mg/dL (0.0-4.40) 12/23/24 13:50 Procalcitonin 0.06 ng/mL (0-0.5) 12/23/24 13:50 TSH 5.71 uIU/mL (0.27-4.20) H 12/23/24 13:50 Urine Color Yellow (Yellow) 12/23/24 13:59 Urine Appearance Clear (CLEAR) 12/23/24 13:59 Urine pH 7.0 (5-7) 12/23/24 13:59 Ur Specific [place] 1.007 (1.005-1.030) 12/23/24 13:59 Urine Protein Negative (Negative) 12/23/24 13:59 Urine Glucose (UA) Negative (Normal) 12/23/24 13:59 Urine Ketones Negative (Negative) 12/23/24 13:59 Urine Blood Negative (Negative) 12/23/24 13:59 Urine Nitrate Negative (Negative) 12/23/24 13:59 Urine Bilirubin Negative (Negative) 12/23/24 13:59 Urine Urobilinogen 0.2 mg/dL (Negative) 12/23/24 13:59 Ur Leukocyte Esterase Negative (Negative) 12/23/24 13:59 Urine RBC 0-2 /hpf (0-2) 12/23/24 13:59 Urine WBC 0-5 /hpf (0-5) 12/23/24 13:59 Ur Squamous Epith Cells 0-5 /hpf (0-5) 12/23/24 13:59 Amorphous Sediment Not Reportable 12/23/24 13:59 Urine Bacteria None seen /hpf (NONE) 12/23/24 13:59 Hyaline Casts 0-4 /lpf H 12/23/24 13:59 Adenovirus (PCR) Not detected (NOT DETECT) 12/28/24 21:02 C. pneumoniae DNA (PCR) Not detected (NOT DETECT) 12/28/24 21:02 Coronavirus 229E (PCR) Not detected (NOT DETECT) 12/28/24 21:02 Human Metapneumovir PCR Not detected (NOT DETECT) 12/28/24 21:02 Influenza A (H1) PCR Not detected (NOT DETECT) 12/28/24 21:02 Influ A (H1/09) PCR Not detected (NOT DETECT) 12/28/24 21:02 Influenza A (H3) PCR Not detected (NOT DETECT) 12/28/24 21:02 Influenza Type A (PCR) Not detected (NOT DETECT) 12/28/24 21:02 Influenza Type B (PCR) Not detected (NOT DETECT) 12/28/24 21:02 M. pneumoniae (PCR) Not detected (NOT DETECT) 12/28/24 21:02 Parainfluenza 1 (PCR) Not detected (NOT DETECT) 12/28/24 21:02 Parainfluenza 2 (PCR) Not detected (NOT DETECT) 12/28/24 21:02 Parainfluenza 3 (PCR) Not detected (NOT DETECT) 12/28/24 21:02 Parainfluenza 4 (PCR) Not detected (NOT DETECT) 12/28/24 21:02 RSV Type A (PCR) Not detected (NOT DETECT) 12/28/24 21:02 RSV Type B (PCR) Not detected (NOT DETECT) 12/28/24 21:02 Entero/Rhino (PCR) Not detected (NOT DETECT) 12/28/24 21:02 SARS-CoV-2 (PCR) Not detected (NOT DETECT) 12/28/24 21:02 Vitals Last Vital Signs Temp 98 F 12/29/24 11:30 Pulse 66 12/29/24 11:30 Resp 20 H 12/29/24 08:00 BP 178/100 12/29/24 11:30 Pulse Ox 97 12/29/24 11:30 O2 Del Method Nasal Cannula 12/29/24 11:30 O2 Flow Rate 3 12/29/24 11:30 Discharge Plan Discharge Patient Disposition: Xfer SNF Condition: Stable Prescriptions: New prednisone 10 mg tablet See Taper PO DAILY Qty: 60 0RF Taper: predniSONE 60-10 60 mg Daily for 2 Days and 0 Hour 50 mg Daily for 2 Days and 0 Hour 40 mg Daily for 2 Days and 0 Hour 30 mg Daily for 2 Days and 0 Hour 20 mg Daily for 2 Days and 0 Hour 10 mg Daily for 2 Days and 0 Hour pantoprazole [Protonix] 40 mg tablet,delayed release (DR/EC) 40 mg PO DAILY 28 Days Qty: 30 0RF furosemide [Lasix] 20 mg tablet 20 mg PO DAILY PRN (Reason: weight gain) Qty: 30 0RF Rx Instructions: in addition to lasix 40 mg po daily spironolactone 25 mg tablet 25 mg PO QAM Qty: 30 0RF metoprolol succinate 50 mg tablet extended release 24 hr 50 mg PO DAILY Qty: 30 0RF Entresto 24-26 mg tablet 1 tab PO BID Qty: 60 0RF Continued albuterol sulfate 90 mcg/actuation HFA aerosol inhaler 2 puff INHALATION Q6H PRN (Reason: Shortness Of Breath Or Wheezing) hydrocodone-acetaminophen 10-325 mg Tablet 1 tab PO Q8H PRN (Reason: pain) ipratropium-albuterol 0.5 mg-3 mg(2.5 mg base)/3 mL Solution For Nebulization 1 ml INHALATION Q4-5H PRN (Reason: Shortness Of Breath) levothyroxine 75 mcg Tablet 75 mcg PO DAILY buspirone 10 mg Tablet 10 mg PO TID furosemide 40 mg tablet 40 mg PO DAILY calcipotriene 0.005 % cream 1 applic TOPICAL BID Rx Instructions: FOR USE ON LEGS hydroxyzine HCl 25 mg tablet 25 mg PO TID lorazepam [Ativan] 0.5 mg Tablet 0.5 mg PO TID potassium chloride 10 mEq Tablet Extended Release 10 meq PO DAILY Rx Instructions: daily with breakfast oxybutynin chloride 5 mg Tablet Extended Release 24hr 5 mg PO DAILY Spiriva Respimat 2.5 mcg/actuation Mist 2 puff INHALATION DAILY cholecalciferol (vitamin D3) [D3-5000] 125 mcg (5,000 unit) Capsule See Rx Instructions .ROUTE .COMPLEX Rx Instructions: 1 pill every 7 days ondansetron 4 mg Tablet,Disintegrating 4 mg PO Q8H PRN (Reason: nausea/vomiting ) Discontinued hydralazine 25 mg tablet 25 mg PO TID bumetanide 1 mg tablet 1 mg PO DAILY Rx Instructions: to replace Lasix hydralazine 25 mg Tablet 25 mg PO TID Discharge Orders: Discharge Order (Routine); Ordered 12/29/24 Ordered By: Lupe Jama Referrals: [facility] [Outside] Damien Brewer DO [Primary Care Provider, Family Practice] Priyanka Frances FNP [Nurse Practitioner, Cardiology] - 7-10 days Discharge Diet: Cardiac Discharge Activity: Resume usual activity Patient Instructions: Furosemide (By mouth) (Lasix), Prednisone (By mouth), Pantoprazole (By mouth), Opioid Safety Discharge Attestations Time Spent in Discharge Care*: greater than 30 min Quality Metrics Clinical Quality Measures [ No reported AMI, CVA or VTE this stay] Coding Level of Care Code Acute Code for g Fwd Diagnoses Congestive heart failure I50.9 Heart failure chronicity: acute on chronic Heart failure type: unspecified Chronic obstructive pulmonary disease, unspecified COPD type J44.9 COPD type: unspecified COPD
== END 2024-12-29 14:50 | disposition skilled nursing facility (03) | DRG 292 ==
LOC: ER 17:33 → ER IP 18:13 → MEDSURG 12-24 06:11
PROVIDERS: Family Medicine; Student in an Organized Health Care Education/Training Program; Admitting Provider Internal Medicine; Emergency Provider Emergency Medicine; PCP Family Medicine; Visit Provider Student in an Organized Health Care Education/Training Program
DX: I50.33 Acute on chronic diastolic (congestive) heart failure (principal); J44.1 Chronic obstructive pulmonary disease with (acute) exacerbation; L03.116 Cellulitis of left lower limb; R06.89 Other abnormalities of breathing; R09.02 Hypoxemia; R91.8 Other nonspecific abnormal finding of lung field; I27.20 Pulmonary hypertension, unspecified; R79.89 Other specified abnormal findings of blood chemistry
CPT/HCPCS: 36415; 36600; 51702; 71045; 71250; 71275; 80051; 80053; 80061; 80069; 81001; 82330; 82805; 83036; 83735; 83880; 84145; 84443; 84484; 85007; 85025; 85027; 87486; 87581; 87633; 93005; 93306; 94640; 96372; 96374; 96376; 97116; 97161; 97166; 97530; 97535; 99285; J0360; J0696; J1644; J1938; J2919; J7040; J7512; J9999; Q0162

== ENCOUNTER → 2025-01-11 08:35 | Outpatient (BNVA) | payer OTHER, MEDICAID, SELFPAY | PROVIDERS: PCP Family Medicine; Referring Provider Student in an Organized Health Care Education/Training Program; Visit Provider Nurse Practitioner Family | DX: Z09 Encounter for follow-up examination after completed treatment for conditions other than malignant neoplasm (principal); J44.9 Chronic obstructive pulmonary disease, unspecified; I51.89 Other ill-defined heart diseases; I34.0 Nonrheumatic mitral (valve) insufficiency; I31.39 Other pericardial effusion (noninflammatory); Z87.891 Personal history of nicotine dependence | CPT/HCPCS: 99214 ==

== ENCOUNTER → 2025-02-15 08:55 | Outpatient (BNVA) | payer OTHER, MEDICAID, SELFPAY | PROVIDERS: PCP Family Medicine; Visit Provider Nurse Practitioner Family | DX: I50.33 Acute on chronic diastolic (congestive) heart failure (principal); I27.20 Pulmonary hypertension, unspecified; J44.9 Chronic obstructive pulmonary disease, unspecified; Z87.891 Personal history of nicotine dependence; I50.9 Heart failure, unspecified | CPT/HCPCS: 36415; 80053; 83880; 85025; 99213 ==

== ENCOUNTER 2025-03-03 20:10 | Inpatient (IN) | payer OTHER, MEDICAID, SELFPAY ==
[2025-03-03] VITALS (9 sets, daily range): BP systolic 122–154; BP diastolic 58–73; PULSE 109–115; RESP 16–28; TEMP 36.9; O2SAT 86–96; BMI 42.7
--- OUTSIDE RECORDS SUMMARY | 2025-03-03 20:25 | XMS_ITS | Encounter Summary ---
Author Organization [facility] Address [address] [place] [address] Care Team Providers Care Windows Vmware Administrator Name Role Phone Jean Carlos Vazquez MD Primary Care Provider [phone] Reason for Referral * Outpatient Services (Routine) - Closed Specialty Diagnoses / Procedures Referred By Maryellen abraham Referred To Contact Diagnoses Encounter for screening mammogram for breast cancer Procedures MAMMO DIGITAL SCREEN BILAT MOBILE Tom Martinez MD Phone: tel: fax: Referral ID Status Reason Start Date Expiration Date Visits Re quested Visits Authorized [id number] Closed 12/01/2015 12/31/2016 1 1 Encounter Details Date Type Department Care Team (Latest Contact Info) Description 12/01/2015 Ancillary Orders [facility] [address] [phone] Tom Martinez MD [address] [place] [phone] Encounter for screening mammogram for breast cancer (Primary Dx) Social History Tobacco Use Types Packs/Day Years Used Date Smoking Tobacco: Every Day Cigarettes 1 40 Smokeless Tobacco: Never Alcohol Use Standard Drinks/Week Comments No 0 (1 standard drink = 0.6 oz pur e alcohol) Comments No Sex and Gender Information Value Date Recorded Sex Assigned at Not on file 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 Gender Identity Not on file Sexual Orientation Not on file Occupation Industry Job Start Date Job End Date Not on file Not on file Not on file Not on file documented as of this encounter Plan of Treatment Scheduled Orders Name Type Priority Associated Diagnoses Orde r Schedule MAMMO DIGITAL SCREEN BILAT MOBILE Imaging Routine Encounter for screening mammogram for breast cancer 1 Occurrences starting 12/01/2015 until 06/02/2017 documented as of this encounter Visit Diagnoses Diagnosis Encounter for screening mammogram for breast cancer- Primary documented in this encounter Additional Health Concerns Infection Onset Date Last Indicated Resolved Time R/O COVID-19 10/09/2020 10/09/2020 10/09/2020 2:45 PM CDT documented as of this encounter Care Teams Windows Vmware Administrator Relationship Specialty Start Date End Date Jean Carlos Vazquez MD [address] [place] [phone] PCP - General Family Practice 07/19/19 documented as of this encounter
--- OUTSIDE RECORDS SUMMARY | 2025-03-03 20:25 | XMS_ITS | Encounter Summary ---
Author Organization [facility] Address [address] [place] [address] Care Team Providers Care Mortar Worker Name Role Phone Jean Carlos Vazquez MD Primary Care Provider [phone] Reason for Referral * Outpatient Services (Routine) - Closed Specialty Diagnoses / Procedures Referred By Maryellen abraham Referred To Contact Diagnoses Other screening mammogram Procedures MAMMO DIGITAL SCREEN BILAT [employer] Aubrie Herrera DO NO ADDRESS ON FILE Referral ID Status Reason Start Date Expiration Date Visits Re quested Visits Authorized [id number] Closed 10/21/2011 10/20/2012 1 1 Encounter Details Date Type Department Care Team (Latest Contact Info) Description 10/21/2011 Ancillary Orders 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 Findings: Bilateral CC and MLO views were obtained. This examination was reviewed with the aid of a computer-aided detection system(CAD). The breast tissue density is average. No significant new findings since the prior mammogram(s). Procedure Note Jorge Goldman MD - 11/29/2011 Bilateral Mammogram Reason for Exam: Screening Comparison: Comparison is made with the prior exam(s) dated 11/09/2008. Findings: Bilateral CC and MLO views were obtained. This examination was reviewed with the aid of a computer-aided detectionsystem(CAD). The breast tissue density is average. No significant new findings since the prior mammogram(s). us Aubrie Herrera DO MAMMO ORDERABLES Tereza l Result documented in this encounter Visit Diagnoses Diagnosis Other screening mammogram Other screening mammogram documented in this encounter Additional Health Concerns Infection Onset Date Last Indicated Resolved Time R/O COVID-19 10/09/2020 10/09/2020 10/09/2020 2:45 PM CDT documented as of this encounter Care Teams Mortar Worker Relationship Specialty Start Date End Date Jean Carlos Vazquez MD [address] [place] [address] PENG Banda [phone] PCP - General Family Practice 07/19/19 documented as of this encounter
--- OUTSIDE RECORDS SUMMARY | 2025-03-03 20:25 | XMS_ITS | Encounter Summary ---
Author Organization [facility] Address [address] [place] [address] Care Team Providers Care Break Off Worker Name Role Phone Jean Carlos Vazquez MD Primary Care Provider [phone] Encounter Details Date Type Department Care Team (Late st Contact Info) Description 06/04/2015 Nurse Triage Report [id number] Chana Baker, RN Social History Tobacco Use Types Packs/Day Years Used Date Smoking Tobacco: Every Day Cigarettes 1 40 Smokeless Tobacco: Never Alcohol Use Standard Drinks/Week Comments No 0 (1 standard drink = 0.6 oz pur e alcohol) Comments No Sex and Gender Information Value Date Recorded Sex Assigned at Not on file 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 Report feedback to Dr. Martinez Associated Symptoms: pain under breast near upper abdomen, vomiting Onset: 4-5 days Location: upper abdomen under breast Pain Assessment: 1 - 10 with 10 being the most severe pain 5.5 Treatment so far for current presenting problem: pain medication, heat History (Clinical Problems): patient has had this pain over the past several days, began vomiting and pain worsening 24 hours ago (COPD, Stroke, hyperlipidemia) Medications: medications reviewed with patient in EPIC Medication reactions: allergies reviewed with patient in EPIC <<<<<<<< TRIAGE NOTE >>>>>>>> <<<<<<<< TRIAGE/OUTCOME >>>>>>>> Guideline Title: Abdominal or Pelvic Pain Recommended Disposition: See Provider within 4 hours Original Inclination: Self Management Intended Action: See Provider Within 4 Hours Physician Contacted: No Generalized abdominal pain that progresses to localized pain AND any of the following: loss of appetite, vomiting starting after pain, any fever, OR unable to carry out normal activities ? YES RINTENDENT CEMETERY documented in this encounter Plan of Treatment Not on file documented as of this encounter Visit Diagnoses Not on filedocumented in this encounter Additional Health Concerns Infection Onset Date Last Indicated Resolved Time R/O COVID-19 10/09/2020 10/09/2020 10/09/2020 2:45 PM CDT documented as of this encounter Care Teams Break Off Worker Relationship Specialty Start Date End Date Jean Carlos Vazquez MD [address] [place] [phone] PCP - General Family Practice 07/19/19 documented as of this encounter
--- OUTSIDE RECORDS SUMMARY | 2025-03-03 20:25 | XMS_ITS | Encounter Summary ---
Author Organization [facility] Address [address] [place] [address] Care Team Providers Care Forestry Fire Aide Name Role Phone Jean Carlos Vazquez MD Primary Care Provider Reason for Visit * Reason Comments Medication Refill Encounter Details Date Type Department Care Team ([facility] Contact Info) Description 11/07/2016 Refill [facility] [address] [place] [phone] Tom Martinez MD [address] [place] [phone] Social History Tobacco Use Types Packs/Day Years Used Date Smoking Tobacco: Every Day Cigarettes 1 40 Smokeless Tobacco: Never Alcohol Use Standard Drinks/Week Comments No 0 (1 standard drink = 0.6 oz pur e alcohol) Comments No Sex and Gender Information Value Date Recorded Sex Assigned at Not on file Legal Sex Female 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 Kl documented in this encounter Plan of Treatment Not on file documented as of this encounter Visit Diagnoses Not on filedocumented in this encounter Additional Health Concerns Infection Onset Date Last Indicated Resolved Time R/O COVID-19 10/09/2020 10/09/2020 10/09/2020 2:45 PM CDT documented as of this encounter Care Teams Forestry Fire Aide Relationship Specialty Start Date End Date Jean Carlos Vazquez MD [address] [place] [phone] PCP - General Family Practice 07/19/19 documented as of this encounter
--- OUTSIDE RECORDS SUMMARY | 2025-03-03 20:25 | XMS_ITS | Encounter Summary ---
[facility] Organization [facility] Address [address] [place] [address] Care Team Providers Care Hydraulic Specialist Name Role Phone Jean Carlos Vazquez MD Primary Care Provider [phone] Reason for Referral * Outpatient Services (Routine) - Closed Specialty Diagnoses / Procedures Referred By Maryellen abraham Referred To Contact Diagnoses Other screening mammogram Procedures MAMMO DIGITAL SCREEN BILAT MOBILE Tom Martinez MD Phone: tel: fax: Referral ID Status Reason Start Date Expiration Date Visits Re quested Visits Authorized [id number] Closed 12/05/2014 01/05/2016 1 1 Encounter Details Date Type Department Care Team (Latest Contact Info) Description 12/05/2014 Ancillary Orders [employer] 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 Gender Identity Not on file Sexual Orientation Not on file Occupation Industry Job Start Date Job End Date Not on file Not on file Not on file Not on file documented as of this encounter Plan of Treatment Scheduled Orders Name Type Priority Associated Diagnoses Orde r Schedule MAMMO DIGITAL SCREEN BILAT MOBILE Imaging Routine Other screening mammogram 1 Occurrences starting 12/05/2014 until 06/07/2016 documented as of this encounter Visit Diagnoses Diagnosis Other screening mammogram- Primary documented in this encounter Additional Health Concerns Infection Onset Date Last Indicated Resolved Time R/O COVID-19 10/09/2020 10/09/2020 10/09/2020 2:45 PM CDT documented as of this encounter Care Teams Hydraulic Specialist Relationship Specialty Start Date End Date Jean Carlos Vazquez MD [address] [place] [phone] PCP - General Family Practice 07/19/19 documented as of this encounter
--- OUTSIDE RECORDS SUMMARY | 2025-03-03 20:25 | XMS_ITS | Encounter Summary ---
Author Organization [facility] Address [address] [place] [address] Care Team Providers Care Marble Installer Name Role Phone Jean Carlos Vazquez MD Primary Care Provider [phone] Reason for Referral * Radiology Services (Routine) - Closed Specialty Diagnoses / Procedures Referred By Maryellen t Referred To Contact Diagnoses Visit for screening mammogram Procedures MAMMO SCRN BILAT 3D KOKO W OR WO CAD MOBILE CHG SCREENING MAMMOGRAPHY BI 2-VIEW BREAST INC CAD CHG SCREENING DIGITAL BREAST TOMOSYNTHESIS BI Kane Paredes PA Phone: tel: fax: Referral ID Status Reason Start Date Expiration Date Visits Re quested Visits Authorized [id number] Closed 08/03/2018 09/03/2019 1 1 UNT SERVICES ANALYST Encounter Details Date Type Department Care Team (Latest Contact Info) Description 08/03/2018 Ancillary Orders [facility] [facility] [employer] [facility] [address] [facility] [address] [place] [address] Kane Paredes PA [address] [place] [address] Visit for screening mammogram Social History Tobacco Use Types Packs/Day Years Used Date Smoking Tobacco: Every Day Cigarettes 1 40 Smokeless Tobacco: Never Alcohol Use Standard Drinks/Week Comments No 0 (1 standard drink = 0.6 oz pur e alcohol) Comments No Sex and Gender Information Value Date Recorded Sex Assigned at Not on file Legal Sex Female 7:17 AM ACCOUNT SERVICES ANALYST Gender Identity Not on file Sexual Orientation Not on file Occupation Industry Job Start Date Job End Date Not on file Not on file Not on file Not on file documented as of this encounter Plan of Treatment Scheduled Orders Name Type Priority Associated Diagnoses Orde r Schedule MAMMO SCRN BILAT 3D KOKO W OR WO CAD MOBILE Imaging Routine Visit for screening mammogram 1 Occurrences starting 08/03/2018 until 02/01/2020 documented as of this encounter Visit Diagnoses Diagnosis Visit for screening mammogram Other screening mammogram documented in this encounter Additional Health Concerns Infection Onset Date Last Indicated Resolved Time R/O COVID-19 10/09/2020 10/09/2020 10/09/2020 2:45 PM CDT documented as of this encounter Care Teams Marble Installer Relationship Specialty Start Date End Date Jean Carlos Vazquez MD [address] [place] [phone] PCP - General Family Practice 07/19/19 documented as of this encounter
--- OUTSIDE RECORDS SUMMARY | 2025-03-03 20:25 | XMS_ITS | Clinical Summary ---
Author Organization [facility] Address [address] [place] [address] Phone Care Team Providers Care Car Coupler Name Role Phone Jean Carlos Vazquez MD Primary Care Provider [phone] Allergies Active Allergy Reactions Criticality Noted Date Comments Hydrochloric Acid Unknown 01/04/2019 Hydrochlorothiazide Other (See Comments) 11/24/2008 Caused kidney failure along with Vit. D Lisinopril Angioedema High 10/03/2020 Nitrofurantoin Monohyd/M-Cryst Nausea and Vomiting,Muscle Pain,Weakness Low 09/24/2014 Propoxyphene Hives,Unknown High 11/04/2008 Sulfa (Sulfonamide Antibiotics) Hives,Shortness of Breath/Wheezing High 11/17/2012 Venlafaxine Hcl Unknown 01/04/2019 Medications aspirin (ECOTRIN EC) 325 mg Tablet, Delayed Release (E.C.)Indications: Essential hypertension Take 1 Tablet (325 mg) by mouth daily. 100 Tablet 2 07/27/19 20 Active cholecalciferol 1,250 mcg (50,000 unit) Capsule Take 1 Capsule (50,000 Units) by mouth every 7 days. 12 Capsule 3 05/16/20 20 Active diltiaZEM (CARDIZEM CD) 240 mg Controlled Delivery 24 hour capsuleIndications :Essential hypertension Take 1 Capsule (240 mg) by mouth daily. 90 Capsule 3 10/04/19 21 Active busPIRone (BUSPAR) 10 mg tabletIndications: Generalized anxiety disorder with panic attacks Take 1 Tablet (10 mg) by mouth 3 times daily. 90 Tablet 1 10/04/19 Active albuterol HFA 90 mcg inhalerIndications :COPD with exacerbation (CMS/HCC) INHALE 2 PUFFS BY MOUTH EVERY 6 HOURS NEEDED FOR SHORTNESS OF BREATH 25.5 Gram 3 10/04/19 Active Nebulizer & Compressor For Neb DeviceIndications: COPD with exacerbation (CMS/HCC) Use with nebulized albuterol every 6 hours as needed for shortness of breath. 1 Each 10/05/19 Active albuterol (PROVENTIL,VENTOLI N) 2.5 mg /3 mL (0.083 %) Solution for NebulizationIndica tions:COPD with exacerbation (CMS/HCC) Take 3 mL (2.5 mg) by inhalation every 6 hours as needed for Shortness of Breath or Wheezing. 270 mL 10/05/19 Active chlorthalidone (HYGROTON) 25 mg tablet Take 1 Tablet (25 mg) by mouth daily. 90 Tablet 3 10/07/19 Active OTHERIndications:C OPD, moderate (CMS/HCC),Acute on chronic respiratory failure, unspecified whether with hypoxia or hypercapnia (CMS/HCC) Bedside commode. [employer] 1 Each 10/07/19 Active omeprazole (PriLOSEC) 40 mg Capsule, Delayed Release(E.C.) Take 40 mg by mouth daily. Active docusate sodium (COLACE) 100 mg capsule Take 100 mg by mouth daily. Active fluticasone-umecli dinium-vilanterol (TRELEGY ELLIPTA) 100-62.5-25 mcg Disk with DeviceIndications: Chronic obstructive pulmonary disease, unspecified COPD type (CMS/HCC) Take 1 Puff by inhalation daily. 30 Each 11/15/19 Active FLUoxetine (PROzac) 20 mg tabletIndications: Moderate single current episode of major depressive disorder (CMS/HCC) Take 1 Tablet (20 mg) by mouth daily. 30 Tablet 2 11/29/19 Active LEVOTHYROXINE 75 mcg tabletIndications: Hypothyroidism due to acquired atrophy of thyroid TAKE 1 TABLET BY MOUTH DAILY 90 Tablet 1 12/12/19 Active HYDROcodone-acetam inophen (NORCO) 5-325 mg tabletIndications: Chronic bilateral low back pain without sciatica Take 1 Tablet by mouth 4 times daily as needed for Pain. Max Daily Amount: 4 Tablets 25 Tablet 01/10/20 Active furosemide (LASIX) 40 mg tabletIndications: Lymphedema of both lower extremities Take 1 Tablet (40 mg) by mouth daily. 90 Tablet 3 01/10/20 21 Active portable oxygenIndications: Stage 3 severe COPD by GOLD classification (CMS/HCC),Chronic respiratory failure with hypoxia and hypercapnia (CMS/HCC),Centrilo bular emphysema (CMS/HCC) Face to Face completed within 30 days: 01/09/2021 Documentation of oxygen requirement for portable oxygen: O2 saturation on room air with ambulation dropped to 83%. Pulse elevated to 117. Patient significantly dyspneic. O2 2 L/min nasal cannula applied. O2 saturation 94% on 2 L/min nasal cannula. Please provide small portable oxygen tanks for patient to use when she needs to leave her home. Thank you very much. Length of Need: 99 months By: Nasal Cannula Continuously at 2 L/min. 1 Each 01/10/20 21 Active terbinafine HCL (LAMISIL AT) 1 % CreamIndications:S eborrheic dermatitis Apply to affected area 2 times daily. FOR TWO WEEKS OR UNTIL RASH RESOLVED. MAY THEN USE NEEDED FOR RECURRENT RASH 28 Gram 3 01/10/20 21 Active triamcinolone acetonide (KENALOG) 0.1 % CreamIndications:S eborrheic dermatitis Apply to affected area 1 time daily as needed (FOR RASH ON FOREHEAD). 28 Gram 1 01/10/20 21 Active Active Problems Problem Noted Date Diagnosed Date Seborrheic dermatitis - forehead 01/09/2021 Centrilobular emphysema 12/11/2020 Lymphedema of both lower extremities 11/04/2020 Chronic respiratory failure with hypoxia and hyp ercapnia 10/03/2020 Generalized anxiety disorder with panic attacks 10/03/2020 Need for assistance due to unsteady gait 020 Severe obesity (BMI 35.0-39.9) with comorbidity 11/11/2019 Moderate single current epis ode of major depressive disorder 04/14/2017 Obesity (BMI 30.0-34.9) 08/16/2015 History of CVA - ischemic thalamic stroke 2014 Vitamin D deficiency 03/23/2015 Hypothyroidism due to acquired atrophy of thyroi d 03/20/2015 Lichen sclerosus of female genitalia 02/14/2014 Mixed hyperlipidemia 09/16/2010 Allergic rhinitis, cause unspecified 09/16/2010 Obstructive sleep apnea syndrome 08/26/2009 Essential hypertension 2009 Tobacco use disorder 05/09/2009 Hypoxemia requiring supplemental oxygen 12/28/19 09 Stage 3 severe COPD by GOLD classification 12/13 Insomnia 12/13/2008 Migraine headache 11/14/2008 Chronic bilateral low back pain without sciatica 11/05/2008 Resolved Problems Problem Noted Date Diagnosed Date Resolved Date COPD with exacerbation 07/17/201911/14 Headache 07/17/2019 10/17/2020 Recurrent UTI 10/23/2015 10/17/2020 Acute ischemic stroke - bilateral thalamus 05/08/2015 06/05/2015 Double vision 05/08/2015 05/11/2015 Anxiety 09/19/2011 10/17/2020 Constipation 08/27/2011 10/17/2020 HTN (hypertension) 05/09/2009 9 Sinus tachycardia 05/09/2009 10/17/2020 Vitamin D intoxication 12/13/200801/13 Palpitations 12/13/2008 08/27/2011 Renal insufficiency 11/14/2008 01/14/20 14 Hypervitaminosis D 11/14/2008 9 UTI (urinary tract infection) 11/13/2008 09/13/2010 Overview (08/14/2010): Updating IMO/ICD9 Code and Description Fluid overload 11/13/2008 11/14/2008 Overview (08/15/2010): Updating IMO/ICD9 Code and Description Anemia 11/05/2008 02/14/2014 Acute renal failure 11/04/2008 11/15/19 09 Hypercalcemia 11/04/2008 11/14/2008 Other malaise and fatigue 11/04/2008 Palpitations 11/04/2008 11/14/2008 Diplopia 05/11/2015 H/O: CVA (cerebrovascular accident) 05/11/2015 Immunizations Immunization Administration Dates Next Due (PNEUMOVAX 23)(50 YRS UP) PNEUMOCOCCAL POLYSACCHARIDE (PPV23) 0.5 ML, IM 10/13/2020 (PREVNAR 13)(6 WKS UP) PNEUM OCOCCAL CONJUGATE (PCV13) 0.5 ML, IM 05/11/2015 INFLUENZA VACCINE HIGH DOSE QUADRIVALENT 65 YR UP PF IM 04/26/2020 Influenza Seasonal Unspecifi ed Formulation IM 04/05/2016,04/08/2015,04/06/2014,10/0 09/2011,03/21/2011,03/21/2010 Influenza Vaccine High Dose 65+ Yrs IM 04/19/2018 04/19/2019 Pneumococcal conjugate, unsp ecified formulation 03/21/2010 Family History Medical History Relation Name Comments Diabetes Father Heart Disease Father Hypertension Father Heart Disease Mother Hypertension Mother Breast Cancer Neg Hx Colon Cancer Neg Hx Relation Name Status Comments Father Mother Social History Tobacco Use Types Packs/Day Years Used Date Smoking Tobacco: Every Day Cigarettes 1 53 Smokeless Tobacco: Never Tobacco Cessation:Ready to Q uit: No; Counseling Given: Yes Alcohol Use Standard Drinks/Week Comments No 0 (1 standard drink = 0.6 oz pur e alcohol) Comments No Sex and Gender Information Value Date Recorded Sex Assigned at Not on file Legal Sex Female 7:17 AM PRIMARY COUNSELOR Gender Identity Not on file Sexual Orientation Not on file Occupation Industry Job Start Date Job End Date Not on file Not on file Not on file Not on file Last Filed Vital Signs Vital Sign Reading Time Taken Comments Blood Pressure 130/82 01/09/2021 11:39 AM CDT Pulse 77 01/09/2021 11:39 AM CDT Temperature 36.7 C (98 F) 01/09/2021 11:39 AM CDT Respiratory Rate 18 10/24/2020 11:31 AM CDT Oxygen Saturation 97% 01/09/2021 11:39 AM CDT Inhaled Oxygen Concentration - - Weight 105.7 kg (233 lb) 01/09/2021 11:39 AM CDT Height 157.5 cm (5' 2 ) 01/09/2021 11:39 AM CDT Body Mass Index 42.62 01/09/2021 11:39 AM CDT Plan of Treatment Health Maintenance Due Date Last Done Comments DTAP/TDAP/TD VACCINES (1 - Tdap) 1965 ZOSTER VACCINE (1 of 2) 1996 OSTEOPOROSIS SCREENING 2011 RSV VACCINE (60+ or ) (1 - 1-dose 75+ series) 2021 Medicare Advantage ([place]) Preventative Visit/Annual Wellness Visit 07/21/2024 06/19/2015 INFLUENZA VACCINE (#1) 2025 0, 04/19/2018, 04/05/2016, Additional history exists PNEUMOCOCCAL VACCINE 50+ YEARS Completed 0 10/13/2020, 05/11/2015, 04/25/2010, Additional history exists Insurance [place]ICA[place] DUAL COMPLETE [facility] PPO D-SNP RX [employer] RX Member Subscriber Plan / Payer (Ef fective 2018-Present) Name:Leeanne Chau Mahsa Relation to Subscriber:Self Name:Leeanne Chau Mahsa Payer ID:Not on file Group ID:[id number] Type:RX Medicare Part D Address: [place] [employer] Medicaid RX [place] PLANS (INTERNAL) [facility] Internal Plans Advance Directives For more information, please contact: [phone] * Full Code (Latest Code Status on File) Date Activated Date Inactivated Comments 10/09/2020 4:29 PM 10/14/2020 8:40 AM * Full Code Date Activated Date Inactivated Comments 07/17/2019 6:54 PM 07/19/2019 7:37 PM * Full Code Date Activated Date Inactivated Comments 05/08/2015 9:24 PM 05/09/2015 9:33 PM * Full Code Date Activated Date Inactivated Comments 11/04/2008 7:42 PM 11/14/2008 5:56 PM Care Teams Car Coupler Relationship Specialty Start Date End Date Jean Carlos Vazquez MD [address] [place] [address] [place] [phone] PCP - General Family Practice 07/19/19
--- OUTSIDE RECORDS SUMMARY | 2025-03-03 20:25 | XMS_ITS | Encounter Summary ---
Author Organization [facility] Address [address] [place] [address] Care Team Providers Care Production Planner Scheduler Name Role Phone Jean Carlos Vazquez MD Primary Care Provider Reason for Referral * Radiology Services (Routine) - Closed Specialty Diagnoses / Procedures Referred By Maryellen abraham Referred To Contact Diagnoses Visit for screening mammogram Procedures MAMMO 3D SCREEN BILATERAL MOBILE Kane Paredes PA Phone: tel: fax: Referral ID Status Reason Start Date Expiration Date Visits Re quested Visits Authorized [id number] Closed 08/25/2018 09/25/2019 1 1 CIPAL EXAMINER Encounter Details Date Type Department Care Team (Latest Contact Info) Description 08/25/2018 Ancillary Orders [facility] [address] [facility] [address] [place] [phone] Kane Paredes PA [address] [place] [address] Visit for screening mammogram Social History Tobacco Use Types Packs/Day Years Used Date Smoking Tobacco: Every Day Cigarettes 1 40 Smokeless Tobacco: Never Alcohol Use Standard Drinks/Week Comments No 0 (1 standard drink = 0.6 oz pur e alcohol) Comments No Sex and Gender Information Value Date Recorded Sex Assigned at Not on file Legal Sex Female 7:17 AM PRINCIPAL EXAMINER Gender Identity Not on file Sexual Orientation Not on file Occupation Industry Job Start Date Job End Date Not on file Not on file Not on file Not on file documented as of this encounter Plan of Treatment Not on file documented as of this encounter Results * MAMMO 3D SCREEN BILATERAL MOBILE (08/26/2018 2:01 PM PRINCIPAL EXAMINER) Anatomical Region Laterality Modality Breast Bilateral Mammography Narrative 08/28/2018 8:25 AM PRINCIPAL EXAMINER Bilateral Digital Mammogram with CAD and 3D Tomography Reason for Exam: Screening Comparison: Compared to: 02/02/2014 MAMMO DIGITAL SCREEN BILAT MOBILE, 11/28/2011 MAMMO DIGITAL SCREEN BILAT MOBILE , 11/09/2008 MAMMO DIGITAL DIAG BILAT, and 11/09/2008 MAMMO BREAST US LT Technique: 3D MLO and CC digital tomosynthesis images were acquired and synthesized 2D images (C view) were generated. This digital mammogram was also analyzed by the Computer Aided Detection System CAD). Breast Composition: There are scattered areas of fibroglandular density. There are no suspicious masses, areas of architectural distortions, or microcalcifications to suggest malignancy. No significant new findings since the prior mammogram(s). us Kane BARNETT MAMMO ORDERABLES Final Res ult documented in this encounter Visit Diagnoses Diagnosis Visit for screening mammogram Other screening mammogram Visit for screening mammogram Other screening mammogram documented in this encounter Additional Health Concerns Infection Onset Date Last Indicated Resolved Time R/O COVID-19 10/09/2020 10/09/2020 10/09/2020 2:45 PM CDT documented as of this encounter Care Teams Production Planner Scheduler Relationship Specialty Start Date End Date Jean Carlos Vazquez MD [address] [place] [phone] PCP - General Family Practice 07/19/19 documented as of this encounter
--- NOTE | 2025-03-03 20:40 | XRR_ITS ---
PROCEDURE INFORMATION: Exam: XR Chest Exam date and time: 03/03/2025 8:42 PM Age: 79 years old Clinical indication: Chest wall pain; Additional info: Chest pain TECHNIQUE: Imaging protocol: Radiologic exam of the chest. Views: 1 view. COMPARISON: CR XR chest 1V portable [id number] 12/26/2024 5:47 PM FINDINGS: Lungs: Unremarkable. No consolidation. Pleural spaces: Unremarkable. No pleural effusion. No pneumothorax. Heart/Mediastinum: Unremarkable. No cardiomegaly. Bones/joints: Unremarkable. XR/XR chest 1V portable [id number] IMPRESSION: No acute finding.
--- NOTE | 2025-03-03 20:49 | ECG_ITS ---
[employer] Test Date: 2025-03-03 Pat Name: Leeanne Chau Department: Room: Gender: Female Car Unloader: : 1945 Requested By: Artur Fragoso Order Number: [id number] Reading MD: Measurements Intervals [place] Rate: 109 P: 81 ID: [id number] QRS: 80 QRSD: 92 T: 72 QT: 310 QTc: 419 Interpretive Statements SINUS TACHYCARDIA LOW QRS VOLTAGE IN PRECORDIAL LEADS [QRS DEFLECTION < 1.0 mV IN CHEST LEADS] ABNORMAL RHYTHM ECG [email or web address]
[2025-03-03 20:56] LABS: Hematocrit 30.7 % (36-47); Hemoglobin 9.10 g/dL (11.27-16.99); Mean Corpuscular HGB Conc 29.6 g/dL (30-55); Mean Corpuscular Hemoglobin 27.0 pg (27-33); Mean Corpuscular Volume 91.1 fl (85-98); Nucleated Red Blood Cells % 0 %; Platelet Count 399 10^3/cmm (157-399); Red Blood Count 3.37 10^6/uL (3.85-5.65); White Blood Count 13.38 10^3/uL (3.29-11.43)
[2025-03-03 21:13] LABS: Troponin(5th) Baseline 25 ng/L (0-10)
--- NOTE | 2025-03-03 21:13 | CTR_ITS ---
PROCEDURE INFORMATION: Exam: CTA Chest With Contrast Exam date and time: 03/03/2025 11:46 PM Age: 79 years old Clinical indication: Shortness of breath and tachypnea; Additional info: Tachycardic, hypoxic, tachpynic, increased o2 requirement TECHNIQUE: Imaging protocol: Computed tomographic angiography of the chest with contrast. Exam focused on the arteries. 3D rendering (Not supervised by radiologist): MIP and/or 3D reconstructed images were created by the technologist. Radiation optimization: All CT scans at this facility use at least one of these dose optimization techniques: automated exposure control; mA and/or kV adjustment per patient size (includes targeted exams where dose is matched to clinical indication); or iterative reconstruction. Contrast material: OMNI 350; Contrast volume: 83 ml; Contrast route: INTRAVENOUS (IV); COMPARISON: CT angio chest PE protcl [id number] 12/24/2024 6:55 AM RADIATION DOSE METRICS: Total DLP (mGy-cm): 548.03 FINDINGS: Pulmonary arteries: There is no acute or chronic pulmonary embolism. Aorta: Unremarkable. No aortic aneurysm. No aortic dissection. Lungs: There are findings of lung parenchymal emphysema. There are peribronchovascular areas of airspace abnormality in the left upper both lower lobes multilobar infectious bronchopneumonia pattern suspected, further workup recommended. Pleural spaces: No significant pleural effusions. No pneumothoraces. Heart: There is no aneurysm or dissection. Aortic valve mitral annular and coronary artery calcifications present Lymph nodes: There is demonstration of aortopulmonary window 1.1 cm, precarinal 1.9 cm and right inferior hilar 1.1 cm lymph nodes could be reactive inflammatory Bones/joints: Unremarkable. No acute fracture. Soft tissues: Unremarkable. CT/CT angio chest PE protcl [id number] IMPRESSION: Findings of emphysema with abnormality seen accordance with multilobar infectious bronchopneumonia pattern for workup and follow-up to resolution recommended. No acute or chronic pulmonary embolism.
[2025-03-03 21:22] LABS: Alanine Aminotransferase 9 U/L (0-33); Albumin Level 3.5 g/dL (3.5-5.2); Alkaline Phosphatase 113 U/L (35-105); Anion Gap 15.2 (5-19); Aspartate Amino Transferase 9 U/L (0-32); Blood Urea Nitrogen 19 mg/dL (8-23); Calcium 9.9 mg/dL (8.5-10.5); Carbon Dioxide 39 mmol/L (22-29); Chloride 90 mmol/L (98-107); Creatinine Clr Calc Pharmacy 58.9755; Globulin 3.6 g/dL (1.3-4.6); Glucose 132 mg/dL (65-115); NT Pro B Type Natriuretic Pept 792 pg/mL (0-450); Osmolality Calculated 294 mOsm/kg (285-295); Potassium 4.2 mmol/L (3.5-5.1); Sodium 140 mmol/L (136-145); Total Protein 7.1 g/dL (6.6-8.7)
[2025-03-03 22:45] LABS: ABG PH Result 7.40 (7.35-7.45); Arterial Blood Gas Hematocrit 29.7 % (37-47); Blood Gas Allen Test Pos; Blood Gas Operator Identificat BD; Blood Gas Sample Site Brachial, right; Blood Gas Sample Type Arterial; HCO3 ABG 40.4 mmol/L (22-26); PO2 ABG 62.3 mmHg (80.0-100.0)
[2025-03-03 22:48] LABS: ABG PCO2 65.2 mmHg (35-45)
[2025-03-03 23:09] LABS: Coronavirus 229E,HKU1,NL63,OC4 Not Detected (NOT DETECT); Parainfluenza Virus Type 1 Not Detected (NOT DETECT); Parainfluenza Virus Type 2 Not Detected (NOT DETECT); Parainfluenza Virus Type 3 Not Detected (NOT DETECT); Parainfluenza Virus Type 4 Not Detected (NOT DETECT); SARS-COV-2 Not Detected (NOT DETECT)
[2025-03-03 23:24] LABS: Troponin 5 2HR 33.51 ng/L (0-10); Troponin 5 2HR Delta 8.51 ABS# (0-10)
[2025-03-03] MEDS: iohexol 350 mg/mL 500 mL Btl (per mL) IV (23:36)
[2025-03-04] VITALS (15 sets, daily range): BP systolic 118–156; BP diastolic 65–94; PULSE 71–118; RESP 19–30; TEMP 36.5–36.6; O2SAT 92–95; BMI 50.1
[2025-03-04] MEDS: cefepime 1,000 mg SDV 1000 MG IVP ×3 (01:26→17:32)
--- NOTE | 2025-03-04 01:55 | PM.HP ---
Providers/Chief Complaint Admitting Physician: Werner Pulido MD Primary Care Provider: Charli Mcallister DO Chief Complaint: sob History of Present Illness Leeanne Chau is a 79 year old female lives at custodial. She has been short of breath with increased coughing bringing up brown and green phlegm for the last 2 days. She denies fevers but states when they take her vitals they do not tell her anything so she might have a fever. Patient reports being on 4 L/min oxygen due to COPD. Chest x-ray was unremarkable but CTA shows left upper lung and left lower lung pneumonia. Because she resides at custodial she was treated for healthcare acquired pneumonia with cefepime and vancomycin. White count is 13. Patient states she quit tobacco 3 to 4 months ago preceding her last admission. 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 She wants full CODE STATUS Review of Systems Narrative: General uncertain on fever Cardiovascular no chest pain or palpitations Respiratory positive for shortness of breath dyspnea on exertion orthopnea and edema though she states edema is less than usual GI she has had nausea 4 times a month takes ondansetron disintegrating tablet she states she had blood in her stool few weeks ago tested positive but nothing more came of it. She thinks the bleeding is stopped. negative [employer] she had a history of cervical cancer at age 28 treated with surgery says she has a vertical incisional scar but is unsure if she had a hysterectomy. Neuro had a stroke 4 years ago Medications/Allergies Home Medications ?Medication ?Instructions ?Recorded ?Confirmed ?Last Taken ?Type albuterol sulfate 90 mcg/actuation 2 puff inhalation Q6H PRN 12/23/24 02/15/25 12/23/24 History aerosol inhaler Shortness Of Breath Or Wheezing buspirone 10 mg tablet 10 mg PO TID 12/24/24 02/15/25 Unknown History calcipotriene 0.005 % topical cream 1 applic topical BID 12/24/24 02/15/25 Unknown History cholecalciferol (vitamin D3) 125 See Rx Instructions .Route .COMPLEX 12/24/24 02/15/25 Unknown History mcg (5,000 unit) capsule (D3-5000) hydroxyzine HCl 25 mg tablet 25 mg PO TID 12/24/24 02/15/25 Unknown History ipratropium 0.5 mg-albuterol 3 mg 1 ml inhalation Q4-5H PRN 12/24/24 02/15/25 Unknown History (2.5 mg base)/3 mL nebulization Shortness Of Breath soln levothyroxine 75 mcg tablet 75 mcg PO DAILY 12/24/24 02/15/25 Unknown History lorazepam 0.5 mg tablet (Ativan) 0.5 mg PO TID 12/24/24 02/15/25 Unknown History ondansetron 4 mg disintegrating 4 mg PO Q8H PRN nausea/vomiting 12/24/24 02/15/25 Unknown History tablet oxybutynin chloride 5 mg 5 mg PO DAILY 12/24/24 02/15/25 Unknown History tablet,extended release 24 hr metoprolol succinate 50 mg 50 mg PO DAILY #30 tabs 12/29/24 02/15/25 Unknown Rx tablet,extended release 24 hr prednisone 10 mg tablet See Taper PO DAILY #60 tabs 12/29/24 02/15/25 Unknown Rx sacubitril 24 mg-valsartan 26 mg 1 tab PO BID #60 tabs 12/29/24 02/15/25 Unknown Rx tablet (Entresto) spironolactone 25 mg tablet 25 mg PO QAM #30 tabs 12/29/24 02/15/25 Unknown Rx budesonide 0.5 mg/2 mL suspension 0.5 mg inhalation BID 01/11/25 02/15/25 Unknown History for nebulization furosemide 40 mg tablet 40 mg PO BID 01/11/25 02/15/25 Unknown History hydralazine 25 mg tablet 25 mg PO TID 01/11/25 02/15/25 Unknown History hydrocodone 10 mg-acetaminophen 1 tab PO Q8H PRN pain 01/11/25 02/15/25 Unknown History 325 mg tablet hydrocodone 5 mg-acetaminophen 325 1 tab PO Q4H PRN 01/11/25 02/15/25 Unknown History mg tablet potassium chloride 10 mEq 10 meq PO BID 01/11/25 02/15/25 Unknown History tablet,extended release cyclobenzaprine 5 mg tablet mg PO 02/15/25 02/15/25 Unknown History pantoprazole 40 mg tablet,delayed mg PO 02/15/25 02/15/25 Unknown History release Allergies Allergy/AdvReac Type Severity Reaction Status Date / Time propoxyphene (From Darvon) Allergy Unknown Verified 02/15/25 09:04 PFSH Acute PFSH: Social History (Updated 03/04/25 @ 01:59 by Werner Pulido MD) Smoking and tobacco/nicotine status: former use of tobacco/nicotine (last tobacco use was september of 2024) Quit status (tobacco/nicotine): has quit using Year quit tobacco: September 2024 Alcohol intake: former Year of sobriety/quit date alcohol: 2004 Substance/Drug Use: never Additional social history: Retired from [employer]. She wants full CODE STATUS as discussed with Werner Pulido MD on 03/04/2025 Vitals/I&O/Wt Last Vital Signs Temp 98.4 F 03/03/25 20:12 Pulse 114 H 03/03/25 20:12 Resp 16 03/03/25 20:12 BP 154/62 03/03/25 20:12 Pulse Ox 92 03/03/25 22:46 O2 Del Method Nasal Cannula 03/03/25 20:12 O2 Flow Rate 6 03/03/25 20:12 FiO2 35 03/03/25 22:46 Weight last 48 hrs Weight 106.141 kg Physical Exam Narrative: General Well-developed well-nourished morbidly obese female tachypneic tachycardic Patient is on BiPAP but she is able to speak through the mask audibly. CV regular tachycardic rhythm Lungs poor air movement prolonged x-ray phase crackles heard in the left lower lung field Abdomen positive bowel tones obese soft nontender Calves 1+ bilateral pretibial edema with pruning of the skin suggesting previous worsened edema Data 03/03/25 20:40 03/03/25 20:40 Micro: Microbiology 03/04/25 00:09 Blood Culture - Preliminary Blood SPECIMEN COLLECTED 03/04/25 00:00 Blood Culture - Preliminary Blood SPECIMEN COLLECTED A&P Assessment and plan 1. Pneumonia involving left lung: Blood cultures sent will continue with vancomycin and cefepime for healthcare associated pneumonia. Cannot exclude an atypical pneumonia based on the appearance of the CT and lack of dense infiltrate on chest x-ray 2. COPD (chronic obstructive pulmonary disease): Start Decadron 4 mg daily 3. Hypoxemia: As above supplemental oxygen to O2 sat at 90%. She is a CO2 retainer with a PCO2 of 60 and pH is 7.4 4. Congestive heart failure: Patient has history of mild diastolic dysfunction grade 1 out of 4. LVEF is preserved at 60%. Suspect she has sleep apnea. Will continue with home dose diuretics but since she is on BiPAP and reports poor fluid intake will start NS with 20 mL KCl at 75 cc an hour Plan: Physical and Occupational Therapy for discharge planning PDMP PDMP Reviewed: Not Reviewed Attestations Medical Necessity Statement*: Patient admitted to hospital with hypoxemia pneumonia and COPD exacerbation expected to require greater than 2 midnights Coding Level of Care Code Acute Code for g Fwd Diagnoses Pneumonia involving left lung J18.9 COPD (chronic obstructive pulmonary disease) J44.9 Hypoxemia R09.02 Congestive heart failure I50.9 Time Spent (min) 55
[2025-03-04 02:46] LABS: Troponin 5 6HR 31.26 ng/L (0-10); Troponin 5 6HR Delta 6.26 ng/L (0-12)
[2025-03-04] MEDS: metoprolol succinate ER (24 HR) 50 mg Tablet PO ×2 (03:29→10:18)
[2025-03-04] MEDS: sodium chlor 0.9% + KCl 20 mEq 20 MEQ/1,000 ML BAG 75 MEQ IV ×2 (03:30→17:31)
[2025-03-04] MEDS: HYDROcodone-acetaminophen 5-325 mg Tablet 1 TAB PO (03:36)
--- NOTE | 2025-03-04 05:10 | W.ED.SOB ---
HPI - SOB/Dyspnea General: Chief Complaint: Shortness of Breath/Dyspnea Stated Complaint: sob Time Seen by Provider: 03/03/25 20:14 History of Present Illness: HPI Narrative: 79-yo F from a group home with known chronic CHF and COPD was brought in by EMS for worsening dyspnea and low O? saturation. Nursing staff noted SpO? dropped to 72 % during tank change; baseline is 4 L O? at rest. On ED arrival she was tachycardic (pulse 114) and hypoxic at 88 % on 6 L O?. She reports severe breathlessness earlier but states three albuterol nebulizers today provided some relief. Yesterday she required six treatments. Denies ability to lie flat without dyspnea and notes swelling of toes and legs. She feels nursing-home care is inadequate and suspects she caught a cold two weeks ago but never had vitals or evaluation. No chest pain, fevers, or chills reported during interview. Emotional: frustrated and anxious about returning to current facility. Related Data Home Medications ?Medication ?Instructions ?Recorded ?Confirmed albuterol sulfate 90 mcg/actuation 2 puff inhalation Q6H PRN 12/23/24 02/15/25 aerosol inhaler Shortness Of Breath Or Wheezing buspirone 10 mg tablet 10 mg PO TID 12/24/24 02/15/25 calcipotriene 0.005 % topical cream 1 applic topical BID 12/24/24 02/15/25 cholecalciferol (vitamin D3) 125 See Rx Instructions .Route .COMPLEX 12/24/24 02/15/25 mcg (5,000 unit) capsule (D3-5000) hydroxyzine HCl 25 mg tablet 25 mg PO TID 12/24/24 02/15/25 ipratropium 0.5 mg-albuterol 3 mg 1 ml inhalation Q4-5H PRN 12/24/24 02/15/25 (2.5 mg base)/3 mL nebulization Shortness Of Breath soln levothyroxine 75 mcg tablet 75 mcg PO DAILY 12/24/24 02/15/25 lorazepam 0.5 mg tablet (Ativan) 0.5 mg PO TID 12/24/24 02/15/25 ondansetron 4 mg disintegrating 4 mg PO Q8H PRN nausea/vomiting 12/24/24 02/15/25 tablet oxybutynin chloride 5 mg 5 mg PO DAILY 12/24/24 02/15/25 tablet,extended release 24 hr budesonide 0.5 mg/2 mL suspension 0.5 mg inhalation BID 01/11/25 02/15/25 for nebulization furosemide 40 mg tablet 40 mg PO BID 01/11/25 02/15/25 hydralazine 25 mg tablet 25 mg PO TID 01/11/25 02/15/25 hydrocodone 10 mg-acetaminophen 1 tab PO Q8H PRN pain 01/11/25 02/15/25 325 mg tablet hydrocodone 5 mg-acetaminophen 325 1 tab PO Q4H PRN 01/11/25 02/15/25 mg tablet potassium chloride 10 mEq 10 meq PO BID 01/11/25 02/15/25 tablet,extended release cyclobenzaprine 5 mg tablet mg PO 02/15/25 02/15/25 pantoprazole 40 mg tablet,delayed mg PO 02/15/25 02/15/25 release Previous Rx's ?Medication ?Instructions ?Recorded metoprolol succinate 50 mg 50 mg PO DAILY #30 tabs 12/29/24 tablet,extended release 24 hr prednisone 10 mg tablet See Taper PO DAILY #60 tabs 12/29/24 sacubitril 24 mg-valsartan 26 mg 1 tab PO BID #60 tabs 12/29/24 tablet (Entresto) spironolactone 25 mg tablet 25 mg PO QAM #30 tabs 12/29/24 Allergies Allergy/AdvReac Type Severity Reaction Status Date / Time propoxyphene (From Darvon) Allergy Unknown Verified 02/15/25 09:04 PFS ED PFSH: Social History (Updated 03/04/25 @ 01:59 by Werner Pulido MD) Smoking and tobacco/nicotine status: former use of tobacco/nicotine (last tobacco use was september of 2024) Quit status (tobacco/nicotine): has quit using Year quit tobacco: September 2024 Alcohol intake: former Year of sobriety/quit date alcohol: 2004 Substance/Drug Use: never Additional social history: Retired from [employer]. She wants full CODE STATUS as discussed with Werner Pulido MD on 03/04/2025 Physical Exam Const: COMMON NORMALS: no acute distress, patient oriented x3 and alert HENMT: COMMON NORMALS: normocephalic and atraumatic HEAD & SCALP: normocephalic and atraumatic Eye: COMMON NORMALS: Equal, round and reactive pupils present, EOMs intact bilaterally and no scleral icterus PUPIL: Yes Equal, round and reactive pupils present Resp: OTHER: Tachypneic, mild wheezes in all lung moseley and crackles in both lung bases. Cardio: OTHER: Tachycardic, regular rhythm. 2+ edema in the feet and legs. GI: COMMON NORMALS: Normal to inspection, nondistended, normoactive bowel sounds present, Soft to palpation and non-tender PALPATION: Yes Soft to palpation Neuro: COMMON NORMALS: patient oriented x3 SENSORIUM/ORIENTATION: Yes alert Skin: COMMON NORMALS: no rashes or lesions noted GENERAL SKIN EXAM: no rashes or lesions noted Course Vital Signs: Vital signs: Vital Signs Temperature 98.4 F 03/03/25 20:12 Pulse Rate 118 H 03/04/25 04:00 Respiratory Rate 24 H 03/04/25 04:00 Blood Pressure 126/90 03/04/25 04:00 Pulse Oximetry 92 03/04/25 04:00 Oxygen Delivery Me thod BiPAP 03/04/25 04:00 Oxygen Flow Rate 7 03/03/25 21:30 Fraction of Inspir ed Oxygen 35 03/04/25 02:23 MDM - SOB/Dyspnea Medical Decision Making Patient arrives tachypneic, tachycardic, and hypoxic. CT of the chest does not show evidence of PE but does show left upper and lower lobe pneumonia as. She required BiPAP intermittently to keep saturations above 90%. She was started on broad-spectrum antibiotics and admitted to the hospital service for further observation and care. Lab Data 03/03/25 20:40 03/03/25 20:40 Labs/Radiology: Radiology Impressions Chest X-Ray 03/03/25 20:40 IMPRESSION: No acute finding. Chest CTA 03/03/25 21:13 IMPRESSION: Findings of emphysema with abnormality seen accordance with multilobar infectious bronchopneumonia pattern for workup and follow-up to resolution recommended. No acute or chronic pulmonary embolism. Laboratory Results WBC 13.38 10^3/uL (3.29-11.43) H 03/03/25 20:40 RBC 3.37 10^6/uL (3.85-5.65) L 03/03/25 20:40 Hgb 9.10 g/dL (11.27-16.99) L 03/03/25 20:40 Hct 30.7 % (36-47) L 03/03/25 20:40 MCV 91.1 fl (85-98) 03/03/25 20:40 MCH 27.0 pg (27-33) 03/03/25 20:40 MCHC 29.6 g/dL (30-55) L 03/03/25 20:40 RDW 13.8 % (12.1-15.1) 03/03/25 20:40 Plt Count 399 10^3/cmm (157-399) 03/03/25 20:40 MPV 8.8 fL (7.4-10.4) 03/03/25 20:40 Neut % (Auto) 83.2 % 03/03/25 20:40 Lymph % (Auto) 7.2 % 03/03/25 20:40 Forrest % (Auto) 8.1 % 03/03/25 20:40 Eos % (Auto) 0.7 % 03/03/25 20:40 Baso % (Auto) 0.4 % 03/03/25 20:40 Neut # (Auto) 11.12 10^3/uL (1.8-7.7) H 03/03/25 20:40 Lymph # (Auto) 1.0 10^3/uL (0.8-4.8) 03/03/25 20:40 Forrest # (Auto) 1.1 10^3/uL (0.2-0.9) H 03/03/25 20:40 Eos # (Auto) 0.1 10^3/uL (0.0-0.8) 03/03/25 20:40 Baso # (Auto) 0.1 10^3/uL (0.0-0.1) 03/03/25 20:40 Nucleated RBC % (auto) 0 % 03/03/25 20:40 Nucleated RBCs # 0.0 /100WBC 03/03/25 20:40 Specimen Type Arterial 03/03/25 22:35 Sample Site Brachial, right 03/03/25 22:35 ABG pH 7.40 (7.35-7.45) 03/03/25 22:35 ABG pCO2 65.2 mmHg (35-45) H* 03/03/25 22:35 ABG pO2 62.3 mmHg (80.0-100.0) L 03/03/25 22:35 ABG HCO3 40.4 mmol/L (22-26) H 03/03/25 22:35 ABG Base Excess 13.5 mmol/L (-2.0-2.0) H 03/03/25 22:35 Marquis Test Pos 03/03/25 22:35 Hematocrit 29.7 % (37-47) L 03/03/25 22:35 O2 Delivery Device Nrb 03/03/25 22:35 Weld Inspector ID Bd 03/03/25 22:35 Sodium 140 mmol/L (136-145) 03/03/25 20:40 Potassium 4.2 mmol/L (3.5-5.1) 03/03/25 20:40 Chloride 90 mmol/L (98-107) L 03/03/25 20:40 Carbon Dioxide 39 mmol/L (22-29) H 03/03/25 20:40 Anion Gap 15.2 (5-19) 03/03/25 20:40 BUN 19 mg/dL (8-23) 03/03/25 20:40 Creatinine 0.9 mg/dL (0.5-0.9) 03/03/25 20:40 GFR Calculation Not Reportable 03/03/25 20:40 Glucose 132 mg/dL (65-115) H 03/03/25 20:40 Calculated Osmolality 294 mOsm/kg (285-295) 03/03/25 20:40 Calcium 9.9 mg/dL (8.5-10.5) 03/03/25 20:40 Total Bilirubin 0.2 mg/dL (0.15-1.2) 03/03/25 20:40 AST 9 U/L (0-32) 03/03/25 20:40 ALT 9 U/L (0-33) 03/03/25 20:40 Alkaline Phosphatase 113 U/L (35-105) H 03/03/25 20:40 Troponin T Baseline 25 ng/L (0-10) H 03/03/25 20:40 Troponin T 120 Minute 33.51 ng/L (0-10) H 03/03/25 22:54 Delta Troponin T 8.51 ABS# (0-10) 03/03/25 22:54 NT-Pro-B Natriuret Pep 792 pg/mL (0-450) H 03/03/25 20:40 Total Protein 7.1 g/dL (6.6-8.7) 03/03/25 20:40 Albumin 3.5 g/dL (3.5-5.2) 03/03/25 20:40 Globulin 3.6 g/dL (1.3-4.6) 03/03/25 20:40 Adenovirus (PCR) Not detected (NOT DETECT) 03/03/25 20:53 C. pneumoniae DNA (PCR) Not detected (NOT DETECT) 03/03/25 20:53 Coronavirus 229E (PCR) Not detected (NOT DETECT) 03/03/25 20:53 Human Metapneumovir PCR Not detected (NOT DETECT) 03/03/25 20:53 Influenza A (H1) PCR Not detected (NOT DETECT) 03/03/25 20:53 Influ A (H1/09) PCR Not detected (NOT DETECT) 03/03/25 20:53 Influenza A (H3) PCR Not detected (NOT DETECT) 03/03/25 20:53 Influenza Type A (PCR) Not detected (NOT DETECT) 03/03/25 20:53 Influenza Type B (PCR) Not detected (NOT DETECT) 03/03/25 20:53 M. pneumoniae (PCR) Not detected (NOT DETECT) 03/03/25 20:53 Parainfluenza 1 (PCR) Not detected (NOT DETECT) 03/03/25 20:53 Parainfluenza 2 (PCR) Not detected (NOT DETECT) 03/03/25 20:53 Parainfluenza 3 (PCR) Not detected (NOT DETECT) 03/03/25 20:53 Parainfluenza 4 (PCR) Not detected (NOT DETECT) 03/03/25 20:53 RSV Type A (PCR) Not detected (NOT DETECT) 03/03/25 20:53 RSV Type B (PCR) Not detected (NOT DETECT) 03/03/25 20:53 Entero/Rhino (PCR) Not detected (NOT DETECT) 03/03/25 20:53 SARS-CoV-2 (PCR) Not detected (NOT DETECT) 03/03/25 20:53 All radiology interpretation(s) finalized by discharge Discharge Plan Discharge Patient Disposition: Admitted As Inpatient Admit Provider: Werner Pulido Clinical Impression: Pneumonia involving left lung, COPD (chronic obstructive pulmonary disease), Congestive heart failure, Hypoxemia Condition: Stable Coding Level of Care Code 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
--- NOTE | 2025-03-04 08:30 | PC.PHAR ---
Pt is now resident at [facility]-several medication changes.
[2025-03-04] MEDS: oxybutynin chloride XL 5 MG TABLET PO (10:17)
--- NOTE | 2025-03-04 11:10 | PC.NURSE ---
Tried to place patient money in evelope in Locker #2. Lock is to small and will allow the locker to be opened. Patient agreed to place sealed envelop with tamper tape in pixis.
--- NOTE | 2025-03-04 12:42 | P.PN_ITS ---
Subjective 2 Subjective: Breathing somewhat improved. Vitals/I&O/Wt Last Vital Signs Temp 97.7 F 03/04/25 12:09 Pulse 108 H 03/04/25 12:09 Resp 20 H 03/04/25 12:09 BP 118/65 03/04/25 12:09 Pulse Ox 92 03/04/25 12:09 O2 Del Method Nasal Cannula 03/04/25 12:09 O2 Flow Rate 4 03/04/25 08:21 FiO2 35 03/04/25 02:23 03/03/25 03/04/25 03/04/25 22:59 06:59 14:59 Intake Total 420 / 420 Balance 420 / 420 Weight last 48 hrs Weight 124.369 kg Weight 106.141 kg Physical Exam 2 Const: COMMON NORMALS: no acute distress and patient oriented x3 N UTRITIONAL APPEARANCE: obese HENMT: COMMON NORMALS: normocephalic and atraumatic HEAD & SCALP: n ormocephalic and atraumatic Eye: COMMON NORMALS: Equal, round and reactive pupils present and EOMs intact bilaterally PUPIL: Yes Equal, round and reactive pupils present Chest: COMMONS NORMALS: normal palpation of entire chest wall Resp: AUSCULTATION: rales bilateral and diminished lung sounds Cardio: COMMON NORMALS: regular rate, regular rhythm, No gallops present (Cardio), No murmurs present (Cardio) and No rub (Cardio) RATE: regular rate RHYTHM: regular rhythm GI: COMMON NORMALS: Soft to palpation, No hepatosplenomegaly present and no masses PALPATION: Yes Soft to palpation and Yes No hepatosplenomegaly present Extremity: NARRATIVE EXTREMITY EXAM: BL LE edema, nonpitting. Neuro: COMMON NORMALS: patient oriented x3 and CN's II-XII intact bilaterally Psych: COMMON NORMALS: mental status grossly normal, Normal thought process present, cooperative and normal affect THOUGHT PROCESS: Normal thought process present Skin: COMMON NORMALS: no rashes or lesions noted, no wounds and turgor normal GENERAL SKIN EXAM: no rashes or lesions noted and turgor normal Data 03/03/25 20:40 03/03/25 20:40 Micro: Microbiology 03/04/25 00:09 Blood Culture - Preliminary Blood SPECIMEN COLLECTED 03/04/25 00:00 Blood Culture - Preliminary Blood SPECIMEN COLLECTED A&P Assessment and plan 1. COPD (chronic obstructive pulmonary disease): 2. Pneumonia involving left lung: Plan: 79 year old female presenting with COPD exacerbation 2/2 PNA. 1. Pneumonia involving left lung: Blood cultures sent will continue with vancomycin and cefepime for healthcare associated pneumonia. Cannot exclude an atypical pneumonia based on the appearance of the CT and lack of dense infiltrate on chest x-ray 2. COPD (chronic obstructive pulmonary disease) - acute on chronic hypoxic and hypercarbic respiratory failure - cont. Decadron 4 mg daily 3. Hypoxemia: As above supplemental oxygen to O2 sat at 90%. She is a CO2 retainer with a PCO2 of 60 and pH is 7.4 - uses 3-4L O2 per NC at home continuous 4. Congestive heart failure (HFpEF) Patient has history of mild diastolic dysfunction grade 1 out of 4. LVEF is preserved at 60%. Suspect she has sleep apnea. Will continue with home dose diuretics but since she is on BiPAP and reports poor fluid intake will start NS with 20 mL KCl at 75 cc an hour - echo from 01/12 with normal EF, no need to repeat. PPx: lovenox Disposition - she come from [place]. Discharge planning once respiratory status returns to baseline. PDMP PDMP Reviewed: Not Reviewed Attestations 2 Medical Necessity Statement*: ongoing inpatient care for CPOD exacerbation with pneumonia Time Spent in Patient Care: 16 - 35 minutes (>than 50% of time sp ent in counselling and/or direct pt care on unit) . Coding Level of Care Code Acute Code for [facility] Diagnoses COPD (chronic obstructive pulmonary disease) J44.9 Pneumonia involving left lung J18.9
--- NOTE | 2025-03-04 13:11 | PC.SOCIAL ---
*IMM Updated: Patient received Copy of IMM, Signed, dated and in the chart.
--- NOTE | 2025-03-04 13:11 | PC.SOCIAL ---
*IMM Updated: Patient received Copy of IMM, Signed, dated and in the chart.
--- NOTE | 2025-03-04 14:52 | PC.OT ---
Pt refused OT evaluation; pt is wearing Bipap. Will attempt OT evaluation again at later time.
--- NOTE | 2025-03-04 15:18 | PC.NURSE ---
Patient does not want SCDs on due to sitting up and they are uncomfortable. Very hard to keep pulse OX and Telebox on.
--- NOTE | 2025-03-04 16:20 | PC.NURSE ---
Notified Dr. Bustos to verify patient is to take 50mg of Hydralazine and [address] Bustos gave order to Hydralazine 50mg PO and discontinue Hydralazine 25 mg. Orders read back to physician.
[2025-03-04] MEDS: ondansetron hcl ODT 4 mg Tab PO (17:37)
[2025-03-05] VITALS (7 sets, daily range): BP systolic 111–153; BP diastolic 70–80; PULSE 63–104; RESP 16–34; TEMP 36.6–36.8; O2SAT 92–95
[2025-03-05] MEDS: HYDROcodone-acetaminophen 5-325 mg Tablet 1 TAB PO ×2 (00:22→09:43)
[2025-03-05] MEDS: cefepime 1,000 mg SDV 1000 MG IVP (02:25)
[2025-03-05 05:07] LABS: Hematocrit 27.7 % (36-47); Hemoglobin 8.10 g/dL (11.27-16.99); Mean Corpuscular HGB Conc 29.2 g/dL (30-55); Mean Corpuscular Hemoglobin 26.6 pg (27-33); Mean Corpuscular Volume 91.1 fl (85-98); Nucleated Red Blood Cells % 0 %; Platelet Count 389 10^3/cmm (157-399); Red Blood Count 3.04 10^6/uL (3.85-5.65); White Blood Count 8.97 10^3/uL (3.29-11.43)
[2025-03-05 05:37] LABS: Anion Gap 12.1 (5-19); Blood Urea Nitrogen 21 mg/dL (8-23); Calcium 9.5 mg/dL (8.5-10.5); Carbon Dioxide 38 mmol/L (22-29); Chloride 99 mmol/L (98-107); Creatinine Clr Calc Pharmacy 53.5160; Glucose 182 mg/dL (65-115); Osmolality Calculated 308 mOsm/kg (285-295); Potassium 4.1 mmol/L (3.5-5.1); Sodium 145 mmol/L (136-145); Thyroid Stimulating Hormone 0.44 uIU/mL (0.27-4.20)
[2025-03-05 05:44] LABS: Estmated Average Glucose 148; Hemoglobin A1C 6.8 % (4.0-6.0)
[2025-03-05] MEDS: metoprolol succinate ER (24 HR) 50 mg Tablet PO (09:41)
[2025-03-05] MEDS: oxybutynin chloride XL 5 MG TABLET PO (09:41)
--- NOTE | 2025-03-05 10:28 | PM.DCS ---
Discharge Providers Date of Admission: 03/04/25 01:40 Date of Discharge: March 05, 2025 Attending Provider at Admission: Werner Pulido MD Attending Provider at Discharge: Suhas Bustos MD Primary Care Provider: Charli Mcallister DO Diagnoses at Discharge Discharge Diagnosis 1. Chronic obstructive pulmonary disease, unspecified COPD type: 2. Pneumonia involving left lung: Reason for Visit Reason for Visit: sob Brief History: 79 year old female presenting with COPD exacerbation 2/2 PNA Hospital Course Hospital Course 1. Pneumonia involving left lung: - Blood cultures sent - NGTD - continue with vancomycin and cefepime for healthcare associated pneumonia while inpatient, can transition to oral after discharge. - Cannot exclude an atypical pneumonia based on the appearance of the CT and lack of dense infiltrate on chest x-ray - CXR was clear on admission - CTA without PC, emphysema noted as well as multilobar infectious bronchopneumonia - can get follow up scan in 4-6 weeks to ensure resolution. 2. COPD (chronic obstructive pulmonary disease) - acute on chronic hypoxic and hypercarbic respiratory failure - cont. Decadron 4 mg daily, can continue burst dose after discharge. Cont. home inhalers or eq. - not currently wheezing. Respiratory statues appears back to baseline. 3. Hypoxemia: As above supplemental oxygen to O2 sat at 90%. She is a CO2 retainer with a PCO2 of 60 and pH is 7.4 - uses 3-4L O2 per NC at home continuous, currently at home baseline. 4. Congestive heart failure (HFpEF) Patient has history of mild diastolic dysfunction grade 1 out of 4. LVEF is preserved at 60%. - echo from 01/12 with normal EF, no need to repeat. FER - not compliant with her CPAP at home - follow up with pulmonary as outpatient for consideration of alternate mask options. PPx: lovenox Disposition - she is from [place]. Discharge planning for today as respiratory status is near home baseline. Physical Exam Const: COMMON NORMALS: no acute distress and patient oriented x3 NUTRITIONAL APPEARANCE: obese HENMT: COMMON NORMALS: normocephalic and atraumatic HEAD & SCALP: normocephalic and atraumatic Eye: COMMON NORMALS: Equal, round and reactive pupils present and EOMs intact bilaterally PUPIL: Yes Equal, round and reactive pupils present Chest: COMMONS NORMALS: normal palpation of entire chest wall Resp: COMMON NORMALS: clear to auscultation bilaterally AUSCULTATION: clear to auscultation bilaterally and diminished lung sounds Cardio: COMMON NORMALS: regular rate, regular rhythm, No gallops present (Cardio), No murmurs present (Cardio) and No rub (Cardio) RATE: regular rate RHYTHM: regular rhythm GI: COMMON NORMALS: Soft to palpation, No hepatosplenomegaly present and no masses PALPATION: Yes Soft to palpation and Yes No hepatosplenomegaly present Extremity: NARRATIVE EXTREMITY EXAM: BL LE edema, nonpitting. Neuro: COMMON NORMALS: patient oriented x3 and CN's II-XII intact bilaterally Psych: COMMON NORMALS: mental status grossly normal, Normal thought process present, cooperative and normal affect THOUGHT PROCESS: Normal thought process present Skin: COMMON NORMALS: no rashes or lesions noted, no wounds and turgor normal GENERAL SKIN EXAM: no rashes or lesions noted and turgor normal Discharge Data Studies Completed and Pending Completed Studies During Hospitalization Category Date Time Status CTA chest [CT angio chest PE protcl [id number]] Stat Cat Scan 03/03/25 21:13 Completed XR chest 1V portable [id number] Stat Exams 03/03/25 20:40 Completed Pending at discharge Category Date Time Status Blood Culture Stat Lab 03/04/25 00:09 Results Radiology Impressions Chest X-Ray 03/03/25 20:40 IMPRESSION: No acute finding. Chest CTA 03/03/25 21:13 IMPRESSION: Findings of emphysema with abnormality seen accordance with multilobar infectious bronchopneumonia pattern for workup and follow-up to resolution recommended. No acute or chronic pulmonary embolism. Laboratory Results WBC 8.97 10^3/uL (3.29-11.43) 03/05/25 04:35 RBC 3.04 10^6/uL (3.85-5.65) L 03/05/25 04:35 Hgb 8.10 g/dL (11.27-16.99) L 03/05/25 04:35 Hct 27.7 % (36-47) L 03/05/25 04:35 MCV 91.1 fl (85-98) 03/05/25 04:35 MCH 26.6 pg (27-33) L 03/05/25 04:35 MCHC 29.2 g/dL (30-55) L 03/05/25 04:35 RDW 13.9 % (12.1-15.1) 03/05/25 04:35 Plt Count 389 10^3/cmm (157-399) 03/05/25 04:35 MPV 9.3 fL (7.4-10.4) 03/05/25 04:35 Neut % (Auto) 80.4 % 03/05/25 04:35 Lymph % (Auto) 11.5 % 03/05/25 04:35 [place] % (Auto) 7.4 % 03/05/25 04:35 Eos % (Auto) 0.0 % 03/05/25 04:35 Baso % (Auto) 0.3 % 03/05/25 04:35 Neut # (Auto) 7.21 10^3/uL (1.8-7.7) 03/05/25 04:35 Lymph # (Auto) 1.0 10^3/uL (0.8-4.8) 03/05/25 04:35 [place] # (Auto) 0.7 10^3/uL (0.2-0.9) 03/05/25 04:35 Eos # (Auto) 0.0 10^3/uL (0.0-0.8) 03/05/25 04:35 Baso # (Auto) 0.0 10^3/uL (0.0-0.1) 03/05/25 04:35 Nucleated RBC % (auto) 0 % 03/05/25 04:35 Nucleated RBCs # 0.0 /100WBC 03/05/25 04:35 Specimen Type Arterial 03/03/25 22:35 Sample Site Brachial, right 03/03/25 22:35 ABG pH 7.40 (7.35-7.45) 03/03/25 22:35 ABG pCO2 65.2 mmHg (35-45) H* 03/03/25 22:35 ABG pO2 62.3 mmHg (80.0-100.0) L 03/03/25 22:35 ABG HCO3 40.4 mmol/L (22-26) H 03/03/25 22:35 ABG Base Excess 13.5 mmol/L (-2.0-2.0) H 03/03/25 22:35 Marquis Test Pos 03/03/25 22:35 Hematocrit 29.7 % (37-47) L 03/03/25 22:35 O2 Delivery Device Nrb 03/03/25 22:35 Director Of Sustainability ID Bd 03/03/25 22:35 Sodium 145 mmol/L (136-145) 03/05/25 04:35 Potassium 4.1 mmol/L (3.5-5.1) 03/05/25 04:35 Chloride 99 mmol/L (98-107) 03/05/25 04:35 Carbon Dioxide 38 mmol/L (22-29) H 03/05/25 04:35 Anion Gap 12.1 (5-19) 03/05/25 04:35 BUN 21 mg/dL (8-23) 03/05/25 04:35 Creatinine 1.0 mg/dL (0.5-0.9) H 03/05/25 04:35 GFR Calculation Not Reportable 03/05/25 04:35 Glucose 182 mg/dL (65-115) H 03/05/25 04:35 Estimat Average Glucose 148 03/05/25 04:35 Hemoglobin A1c 6.8 % (4.0-6.0) H 03/05/25 04:35 Calculated Osmolality 308 mOsm/kg (285-295) H 03/05/25 04:35 Calcium 9.5 mg/dL (8.5-10.5) 03/05/25 04:35 Total Bilirubin 0.2 mg/dL (0.15-1.2) 03/03/25 20:40 AST 9 U/L (0-32) 03/03/25 20:40 ALT 9 U/L (0-33) 03/03/25 20:40 Alkaline Phosphatase 113 U/L (35-105) H 03/03/25 20:40 Troponin T Baseline 25 ng/L (0-10) H 03/03/25 20:40 Troponin T 120 Minute 33.51 ng/L (0-10) H 03/03/25 22:54 Delta Troponin T 8.51 ABS# (0-10) 03/03/25 22:54 Troponin T Hi Sens 6Hr 31.26 ng/L (0-10) H 03/04/25 02:24 Troponin T Hi Sens 6Hr Delta 6.26 ng/L (0-12) 03/04/25 02:24 NT-Pro-B Natriuret Pep 792 pg/mL (0-450) H 03/03/25 20:40 Total Protein 7.1 g/dL (6.6-8.7) 03/03/25 20:40 Albumin 3.5 g/dL (3.5-5.2) 03/03/25 20:40 Globulin 3.6 g/dL (1.3-4.6) 03/03/25 20:40 TSH 0.44 uIU/mL (0.27-4.20) 03/05/25 04:35 Adenovirus (PCR) Not detected (NOT DETECT) 03/03/25 20:53 C. pneumoniae DNA (PCR) Not detected (NOT DETECT) 03/03/25 20:53 Coronavirus 229E (PCR) Not detected (NOT DETECT) 03/03/25 20:53 Human Metapneumovir PCR Not detected (NOT DETECT) 03/03/25 20:53 Influenza A (H1) PCR Not detected (NOT DETECT) 03/03/25 20:53 Influ A (H1/09) PCR Not detected (NOT DETECT) 03/03/25 20:53 Influenza A (H3) PCR Not detected (NOT DETECT) 03/03/25 20:53 Influenza Type A (PCR) Not detected (NOT DETECT) 03/03/25 20:53 Influenza Type B (PCR) Not detected (NOT DETECT) 03/03/25 20:53 M. pneumoniae (PCR) Not detected (NOT DETECT) 03/03/25 20:53 Parainfluenza 1 (PCR) Not detected (NOT DETECT) 03/03/25 20:53 Parainfluenza 2 (PCR) Not detected (NOT DETECT) 03/03/25 20:53 Parainfluenza 3 (PCR) Not detected (NOT DETECT) 03/03/25 20:53 Parainfluenza 4 (PCR) Not detected (NOT DETECT) 03/03/25 20:53 RSV Type A (PCR) Not detected (NOT DETECT) 03/03/25 20:53 RSV Type B (PCR) Not detected (NOT DETECT) 03/03/25 20:53 Entero/Rhino (PCR) Not detected (NOT DETECT) 03/03/25 20:53 SARS-CoV-2 (PCR) Not detected (NOT DETECT) 03/03/25 20:53 Vitals Last Vital Signs Temp 98.2 F 03/05/25 07:42 Pulse 83 03/05/25 07:49 Resp 16 03/05/25 07:49 BP 137/77 03/05/25 07:42 Pulse Ox 92 03/05/25 07:49 O2 Del Method Nasal Cannula 03/05/25 07:49 O2 Flow Rate 4 03/05/25 09:19 FiO2 36 03/05/25 03:14 Discharge Plan Discharge Patient Disposition: Xfer SNF Condition: Stable Prescriptions: New dexamethasone 4 mg Tablet 4 mg PO DAILY Qty: 5 0RF cefdinir 300 mg capsule 300 mg PO Q12H 10 Days Qty: 20 0RF doxycycline hyclate 100 mg capsule 100 mg PO BID 14 Days Qty: 28 0RF Continued budesonide 0.5 mg/2 mL suspension for nebulization 0.5 mg inhalation BID hydrocodone-acetaminophen 5-325 mg tablet 1 tab PO Q4H PRN (Reason: Pain) pantoprazole 40 mg tablet,delayed release (DR/EC) 40 mg PO DAILY guaifenesin 100 mg/5 mL Liquid 300 mg PO Q6H PRN (Reason: cough/congestion) potassium chloride 20 mEq tablet,ER particles/crystals 20 meq PO DAILY magnesium hydroxide [Milk of Magnesia] 400 mg/5 mL Suspension 30 ml PO DAILY PRN (Reason: Constipation) bisacodyl [Dulcolax (bisacodyl)] 10 mg Suppository 10 mg MI DAILY PRN (Reason: Constipation) Fleet Enema 19-7 gram/118 mL Enema 118 ml MI DAILY PRN (Reason: Constipation) hydralazine 50 mg tablet 50 mg PO TID alum-mag hydroxide-simeth [Mylanta] 200-200-20 mg/5 mL Suspension 30 ml PO Q4H PRN (Reason: Indigestion) Rx Instructions: administer between meals and at bedtime fluticasone propionate 50 mcg/actuation spray,suspension 1 spray INTRANASAL DAILY PRN (Reason: Nasal Congestion) melatonin 1 mg Tablet 1 mg PO BEDTIME PRN (Reason: Insomnia) Probiotic 3 billion cell Capsule 3,000 mmu cells PO DAILY PRN (Reason: while on abx) Rx Instructions: administer with a meal Biofreeze (menthol) 4 % Gel 1 applic TOPICAL QID PRN (Reason: Pain) Rx Instructions: low back/right hip albuterol sulfate 90 mcg/actuation HFA aerosol inhaler 2 puff INHALATION Q6H PRN (Reason: Shortness Of Breath Or Wheezing) ipratropium-albuterol 0.5 mg-3 mg(2.5 mg base)/3 mL Solution For Nebulization 1 ml INHALATION Q4-5H PRN (Reason: Shortness Of Breath) levothyroxine 75 mcg Tablet 75 mcg PO DAILY buspirone 10 mg Tablet 10 mg PO TID lorazepam [Ativan] 0.5 mg Tablet 0.5 mg PO TID ondansetron 4 mg Tablet,Disintegrating 4 mg PO Q8H PRN (Reason: nausea/vomiting ) metoprolol succinate 50 mg tablet extended release 24 hr 50 mg PO DAILY Qty: 30 0RF furosemide 40 mg tablet 40 mg PO DAILY Discharge Order = DC NOW: Discharge Order (Routine); Ordered 03/05/25 Ordered By: Suhas Bustos [facility]errals: [facility] [Outside] Discharge Diet: Usual diet Discharge Activity: Resume usual activity Patient Instructions: Opioid Safety, Patient Portal & Frank Instructions Discharge Attestations Time Spent in Discharge Care*: greater than 30 min Specific Discharge Activities: educating patient, educating and/or supporting family/caregiver, discussing with pcp/other providers, discussing with case reviewer/social workers/dc planners, documenting/other paperwork and evaluating patient/reviewing data Quality Metrics Clinical Quality Measures [ No reported AMI, CVA or VTE this stay] Coding Level of Care Code Acute Code for Chg Fwd Diagnoses Chronic obstructive pulmonary disease, unspecified COPD type J44.9 COPD type: unspecified COPD Pneumonia involving left lung J18.9
--- NOTE | 2025-03-05 12:06 | PC.NURSE ---
Patient's inhaler and her 16- 100 dollar bills and 3- 50 dollar bills were returned to her at this time. Money was counted back to patient with this RN and Graciela -PAULINA. Patient returned money to her wallet.
--- NOTE | 2025-03-05 12:59 | PC.NURSE ---
Patient's money and inhaler was returned to patient. This nurse counted patient's money back to her with SOFYA Vailinstructional developer present at bedside. Patient was returned 16- $100 bills and 3- $50 bills. IV line was removed after report was called to PAULINA Escalante at [facility]. Patient left with all belongings, picked up by [facility] staff.
== END 2025-03-05 12:40 | disposition skilled nursing facility (03) | DRG 190 ==
LOC: ER 03-04 00:05 → ER IP 03-04 04:01 → MEDSURG 03-04 05:08
PROVIDERS: Admitting Provider Internal Medicine; Emergency Provider Student in an Organized Health Care Education/Training Program; PCP Internal Medicine; Visit Provider Internal Medicine
DX: J44.0 Chronic obstructive pulmonary disease with (acute) lower respiratory infection (principal); J18.9 Pneumonia, unspecified organism; J96.21 Acute and chronic respiratory failure with hypoxia; J96.22 Acute and chronic respiratory failure with hypercapnia; I50.32 Chronic diastolic (congestive) heart failure; J44.1 Chronic obstructive pulmonary disease with (acute) exacerbation; J43.9 Emphysema, unspecified; G47.33 Obstructive sleep apnea (adult) (pediatric); F10.21 Alcohol dependence, in remission; Z79.891 Long term (current) use of opiate analgesic; Z91.199 Patient's noncompliance with other medical treatment and regimen due to unspecified reason; Z87.891 Personal history of nicotine dependence; Z85.41 Personal history of malignant neoplasm of cervix uteri; Z86.73 Personal history of transient ischemic attack (TIA), and cerebral infarction without residual deficits
CPT/HCPCS: 36415; 36416; 36600; 71045; 71275; 80048; 80053; 82803; 82962; 83036; 83880; 84443; 84484; 85025; 87040; 87486; 87581; 87633; 93005; 94640; 94660; 94664; 96361; 96365; 96372; 96375; 96376; 97116; 97161; 97165; 97530; 99291; J0692; J1650; J3373; J3480; J7626; J8540; J9999; Q0162

== ENCOUNTER → 2025-05-05 14:49 | Outpatient (BNVA) | payer OTHER, MEDICAID, SELFPAY | PROVIDERS: PCP Internal Medicine; Visit Provider Internal Medicine | DX: R91.8 Other nonspecific abnormal finding of lung field (principal); J44.9 Chronic obstructive pulmonary disease, unspecified; I50.9 Heart failure, unspecified; Z87.01 Personal history of pneumonia (recurrent); R59.1 Generalized enlarged lymph nodes; J96.10 Chronic respiratory failure, unspecified whether with hypoxia or hypercapnia; Z99.81 Dependence on supplemental oxygen; T78.40XA Allergy, unspecified, initial encounter; X58.XXXA Exposure to other specified factors, initial encounter; Z87.891 Personal history of nicotine dependence | CPT/HCPCS: 99204; Q3014 ==

== ENCOUNTER 2025-05-05 15:42 | Outpatient (CLI) | payer OTHER, MEDICAID, SELFPAY ==
[2025-05-05 16:24] LABS: ABG PCO2 51.2 mmHg (35-45); ABG PH Result 7.45 (7.35-7.45); Alveolar-Arterial Oxygen Gradi 13.8 mmHg (5-10); Arterial Blood Gas Hematocrit 29.2 % (37-47); Blood Gas Allen Test Pos; Blood Gas LPM 3.0 %; Blood Gas Operator Identificat BROMA; Blood Gas Sample Site Radial, right; Blood Gas Sample Type Arterial; Carboxyhemoglobin 1.0 %THgb (0.4-20.1); Glucose Level-ABG 95.0 mg/dL (70-115); HCO3 ABG 35.4 mmol/L (22-26); Ionized Calcium Level - ABG 1.2 mmol/L (1.1-1.4); Methemoglobin 0.9 % (0.4-1.5); Oxygen Saturation ABG 92.4; PO2 ABG 59.2 mmHg (80.0-100.0); PO2 FiO2 Ratio Arterial Blood 185; Potassium Level - ABG 4.1 mmol/L (3.5-5.0); Sodium Level - ABG 143.0 mmol/L (131-143)
[2025-05-05 16:32] LABS: Hematocrit 29.6 % (36-47); Hemoglobin 8.90 g/dL (11.27-16.99); Mean Corpuscular HGB Conc 30.1 g/dL (30-55); Mean Corpuscular Hemoglobin 25.9 pg (27-33); Mean Corpuscular Volume 86.0 fl (85-98); Nucleated Red Blood Cells % 0 %; Platelet Count 330 10^3/cmm (157-399); Red Blood Count 3.44 10^6/uL (3.85-5.65); White Blood Count 7.40 10^3/uL (3.29-11.43)
[2025-05-10 18:50] LABS: Bermuda Class 0; Cladosporium herbarum Class 0; Common Ragweed (Short) (W1) Ig <0.10 kU/L; Cottonwood Class 0; Dermatophagoides Class 0; Dermatophagoides Farinae (D2) <0.10 kU/L; Maple (Box Elder) (T1) Ige <0.10 kU/L; Maple leaf sycamore Tree <0.10 kU/L; Maple leaf sycamore Tree Class 0; Mouse Urine Proteins Class 0; Oak Class 0; Pecan/Hickory Tree <0.10 kU/L; Pecan/Hickory Tree Class 0; Penicillium Class 0; Ragweeed Class 0; Rough Marsh Elder (W16) Ige <0.10 kU/L; Rough Marsh Elder Class 0; Russian Thistle (W11) IgE <0.10 kU/L; White Ash Tree <0.10 kU/L; White Ash Tree Class 0
== END 2025-05-05 15:43 | disposition home or self-care (01) ==
LOC: LAB 15:44
PROVIDERS: PCP Internal Medicine; Visit Provider Internal Medicine
DX: J44.9 Chronic obstructive pulmonary disease, unspecified (principal); T78.40XA Allergy, unspecified, initial encounter; X58.XXXA Exposure to other specified factors, initial encounter
CPT/HCPCS: 36415; 36600; 80051; 82330; 82805; 85025; 86003

== ENCOUNTER 2025-06-15 13:43 | Outpatient (CLI) | payer OTHER, MEDICAID, SELFPAY ==
[2025-06-15 12:10] VITALS: PULSE 87; RESP 20; O2SAT 92
== END 2025-06-15 13:44 | disposition home or self-care (01) ==
LOC: RT 13:59
PROVIDERS: PCP Internal Medicine; Visit Provider Internal Medicine
DX: J44.9 Chronic obstructive pulmonary disease, unspecified (principal); J98.8 Other specified respiratory disorders; R94.2 Abnormal results of pulmonary function studies
CPT/HCPCS: 94060; 94729; J7613